=== PATIENT | female | born 1950 | race African-American/Black ===

== ENCOUNTER 2017-10-21 22:57 | Observation (INO) | payer OTHER, SELFPAY ==
[2017-10-21 22:57] VITALS: BP 142/82; PULSE 83; RESP 20; TEMP 35.5; O2SAT 98; BMI 29.4
--- NOTE | 2017-10-21 23:04 | ED.RN ---
RN CALLED FOR EKG, PULLED OLD EKGS FOR
[2017-10-21 23:12] VITALS: BP 186/85; PULSE 78; RESP 17; O2SAT 100
--- NOTE | 2017-10-21 23:27 | ED.VISSUMM ---
- ER Visit Summary Date of Service: 10/21/17 Chief Complaint: chest pain History of Present Illness: The patient is a 66 F with two days of chest pain. Patient states the pain started while she was sleeping 2 days ago. It waxes and wanes in intensity and is described as a substernal burning. Currently is a 6-7/10. Pain is worse with breathing. It is not relieved by positional changes or rest. Patient has tried Tylenol PM and trazodone without relief. She has associated dyspnea and cough. Also has sweats while having the chest pain. She denies fever, abdominal pain, nausea or vomiting, back pain. No radiation of the pain other than substernal. She denies any prior similar symptoms. Patient has history of hypertension, hypercholesterolemia, smoking, and has a pacemaker/defibrillator. She denies any history of VTE, exogenous hormone use, recent travel or surgery, or cancer. Physical Examination: Vital signs: afebrile, hemodynamically stable, no hypoxia on room air General: well nourished, well developed, in no distress Skin: warm, dry, no rash, no pallor HEENT: normocephalic and atraumatic; PERRL, EOMI, moist mucous membranes Cardiovascular: regular rate and rhythm without murmurs, no peripheral edema, 2+ pulses all distal extremities, no chest wall tenderness, no rash Respiratory: No increased work of breathing, lungs are clear to auscultation bilaterally, no rales, rhonchi or wheezing Abdominal: Abdomen is soft, nontender with normoactive bowel sounds, no guarding or rebound, no masses MSK: Moves all extremities, no deformities, normal strength Neuro: Awake and alert, oriented ?4. No facial droop, sensation and motor function intact and symmetric Test Results: Abnormal Lab Results 10/21/17 10/21/17 10/21/17 23:13 23:13 23:13 WBC 6.7 RBC 4.21 Hgb 12.1 Hct 38.4 MCV 91.2 MCH 28.7 MCHC 31.5 L RDW 14.9 H RDW Differential 49.9 H Plt Count 202 MPV 9.7 Immature Gran % (Auto) 0.100 Neut % (Auto) 50.7 Lymph % (Auto) 40.3 Bartholomew % (Auto) 6.7 Eos % (Auto) 2.1 Baso % (Auto) 0.1 Absolute Neuts (auto) 3.4 Absolute Lymphs (auto) 2.69 Total Counted Not Reportable PT 13.3 INR 1.0 APTT 27.9 D-Dimer Quant (PE/DVT) 0.28 Sodium 142 Potassium 3.6 Chloride 109 H Carbon Dioxide 23.0 Anion Gap 10 BUN 14 Creatinine 1.08 H Estim Creat Clear Calc 41.81 Est GFR (MDRD) Af Amer 65 Est GFR (MDRD) Non-Af 54 L BUN/Creatinine Ratio 13.0 Glucose 143 H Hemoglobin A1c Calcium 9.2 Troponin I < 0.015 10/21/17 10/22/17 23:13 02:40 WBC RBC Hgb Hct MCV MCH MCHC RDW RDW Differential Plt Count MPV Immature Gran % (Auto) Neut % (Auto) Lymph % (Auto) Bartholomew % (Auto) Eos % (Auto) Baso % (Auto) Absolute Neuts (auto) Absolute Lymphs (auto) Total Counted PT INR APTT D-Dimer Quant (PE/DVT) Sodium Potassium Chloride Carbon Dioxide Anion Gap BUN Creatinine Estim Creat Clear Calc Est GFR (MDRD) Af Amer Est GFR (MDRD) Non-Af BUN/Creatinine Ratio Glucose Hemoglobin A1c 5.9 Calcium Troponin I < 0.015 Clinical Impression(s) from Imaging Studies Chest X-Ray 10/21/17 23:30 IMPRESSION: Cardiomegaly with postsurgical changes. Mild atelectasis left base. No pulmonary edema, congestive heart failure or confluent pneumonia. Other nonacute findings as outlined above. Electronically Signed: Kayleigh Nino MD at 0:09 EDT , Service support , Emergency Department Course and Treatment: Chest pain workup was performed. Patient was given aspirin and nitroglycerin for the pain. She developed a severe headache after 1 dose of nitro and did not wish any further. She was given a dose of morphine. She had complete resolution of the pain. Labs showed no leukocytosis, no significant anemia, no electrolyte derangements, no renal or hepatic dysfunction. Troponin negative. Because of the pleuritic nature of the pain, a d-dimer was checked and it was within normal limits at 0.28. Patient's EKG showed a pacemaker rhythm with no ischemic changes per Sgarbossa criteria. Given patient's age, risk factors and concerning description of her chest pain, with a HEART score of 5, she would benefit from further chest pain workup. Patient was discussed with Dr. Carrillo and admitted under observation status for further chest pain rule out. Treatment Plan: [] Disposition: [] Impression: Acute chest pain, concern for ACS This note was generated with ticckle dictation software. It may contain incorrect words, spelling, and punctuation that were not noted in review of the chart prior to signing ED Disposition - Plan for ED Patient: Disposition: Acute Care Hospital [facility] Chief Complaint: Chest Pain
[2017-10-21 23:29] VITALS: O2SAT 100
[2017-10-21 23:36] VITALS: BP 178/59
[2017-10-21] MEDS: 0.9% Normal Saline 1,000 ML 250 ML IV (23:36)
[2017-10-21] MEDS: Aspirin 81 MG TAB.CHEW 324 MG PO (23:36)
[2017-10-21 23:43] LABS: Absolute Lymphocyte Count 2.69 X10^3/ul (0.83-4.51); Absolute Neutrophil Count 3.4 X10^3/uL (2.0-7.7); Basophil# 0.01 X10^3/uL; Basophil% 0.1 % (0-1); Eosinophil# 0.14 X10^3/uL; Eosinophils% 2.1 % (0-5); Hematocrit 38.4 % (37-47); Hemoglobin 12.1 g/dl (12.0-15.0); Lymphocyte # 2.69 X10^3/ul (4.0); Lymphocyte % 40.3 % (19-41); Mean Corp Hgb Conc 31.5 g/gl (32-36); Mean Corpuscular Hgb 28.7 pg (27.0-32.0); Mean Corpuscular Volume 91.2 fL (81-99); Mean Platelet Vol. 9.7 fl (6.2-12.0); Monocyte# 0.45 X10^3/uL; Monocyte% 6.7 % (0-10); Neutrophil # 3.37 X10^3/uL (2.7-7.7); Neutrophil % 50.7 % (47-70); Platelet Count 202 K/mm3 (150-450); RBC Distribution Width CV 14.9 % (11.6-14.6); RBC Distribution Width SD 49.9 fl (35.1-43.9); Red Blood Count 4.21 M/mm3 (4.2-5.4); White Blood Count 6.7 K/mm3 (4.4-11.0)
[2017-10-21 23:49] LABS: POSITIVE COUNT NO; POSITIVE DIFFERENTIAL NO; POSITIVE MORPHOLOGY NO
[2017-10-21 23:53] LABS: Anion Gap 10 (5-15); BUN 14 mg/dL (7-18); Calcium,Total 9.2 mg/dL (8.5-10.1); Chloride 109 mmol/L (98-107); Creatinine, Serum 1.08 mg/dL (0.55-1.02); EST Glomerular Filtration Rate 54 mL/min (>60); Est Glom Filt Rate - Afr Amer 65 mL/min (>60); Estimated Creatinine Clearance 41.81 ml/min; Glucose 143 mg/dL (74-106); Potassium 3.6 mmol/L (3.5-5.1); Sodium Level 142 mmol/L (136-145)
[2017-10-21] MEDS: Morphine 2 MG/ML Syringe IV (23:54)
[2017-10-22] VITALS (11 sets, daily range): BP systolic 149–200; BP diastolic 64–83; PULSE 66–86; RESP 11–18; TEMP 36.5–36.7; O2SAT 96–100; BMI 29.3
[2017-10-22 00:31] LABS: Prothrombin Time (Protime)PT. 13.3 SECONDS (11.7-14.9)
[2017-10-22 00:32] LABS: Partial Thromboplast Time 27.9 Seconds (24.1-36.2)
[2017-10-22 00:42] LABS: D-Dimer Quantitative (DVT/PE) 0.28 FEU/ug/m (0.27-0.49)
--- NOTE | 2017-10-22 01:09 | HP.PCM_ITS ---
Problem List (1) Atypical chest pain Status: Acute (2) Non-ischemic cardiomyopathy Status: Chronic Comment: S/P biventricular synchronization ICD (3) Family history of hyperlipidemia Status: Acute (4) Family history of hypertension Status: Acute (5) Dyspnea Status: Acute (6) Malaise and fatigue Status: Acute (7) Nonrheumatic mitral (valve) insufficiency Status: Chronic (8) Nonrheumatic tricuspid (valve) insufficiency Status: Chronic Comment: Mild (1+) per echo 03/24/2015 (9) History of left heart catheterization Status: Chronic Comment: 12/01/2009 @ [facility] per Dr. Joaquin: normal coronaries (10) Hypertension Status: Chronic Qualifiers: Hypertension type: essential hypertension Qualified Code(s): I10 - Essential (primary) hypertension (11) Cardiomyopathy in other diseases classified elsewhere Status: Chronic (12) Left bundle branch hemiblock Status: Chronic (13) Chronic systolic congestive heart failure Status: Chronic Comment: EF 25% per echo 03/24/2015 (14) Biventricular automatic implantable cardioverter defibrillator in situ Status: Chronic Comment: Implanted 12/19/[address] Hathaway @ [facility] (15) Paroxysmal ventricular tachycardia Status: Chronic History of Present Illness Date of Admission: 10/22/17 Chief Complaint: Chest pain since Tuesday The patient is a 66 year old F with history of nonischemic cardiomyopathy, EF 25 % with severe global hypokinesis of left ventricle and systolic dysfunction as per echo of February 2015 status post AICD, last heart cath in November 2015 with normal coronaries came to ER with chest pain that is started Tuesday evening. Chest pain is midsternal, localized with no relation to activity, exertion or changing posture. It is intermittent, lasts for 5-10 minutes, exacerbated by deep breathing but not associated with shortness of breath. She has chronic mild shortness of breath on exertion like climbing stairs and mild orthopnea but she is fine at rest due to severe chronic heart failure In ED, her workup was unremarkable with negative troponin. Glucose 143. A1c 5.9. EKG shows atrial sensed ventricular paced rhythm. She had last pacemaker interrogation in April 2017 which showed 3 episodes of NSVT in December 2016. Bi- V paced 98% of time. Recently she did not had defibrillator shock but sometimes she feels extra heartbeat. [] Past Medical History Past Medical History (Chronic Problems): Chronic Problems (Last Reviewed 03/16/17 @ 13:28 by Shira Hewitt) Non-ischemic cardiomyopathy (Chronic) S/P biventricular synchronization ICD Nonrheumatic mitral (valve) insufficiency (Chronic) Nonrheumatic tricuspid (valve) insufficiency (Chronic) Mild (1+) per echo 03/24/2015 History of left heart catheterization (Chronic) 12/01/2009 @ [facility] per Dr. Joaquin: normal coronaries Hypertension (Chronic) Cardiomyopathy in other diseases classified elsewhere (Chronic) Left bundle branch hemiblock (Chronic) Chronic systolic congestive heart failure (Chronic) EF 25% per echo 03/24/2015 Biventricular automatic implantable cardioverter defibrillator in situ (Chronic) Implanted 12/19/[address] Hathaway @ [facility] Paroxysmal ventricular tachycardia (Chronic) Medical History: Medical History (Last Reviewed 03/16/17 @ 13:28 by Shira Hewitt) Nonrheumatic mitral (valve) insufficiency (Chronic) I34.0 Nonrheumatic tricuspid (valve) insufficiency (Chronic) I36.1 Mild (1+) per echo 03/24/2015 Hypertension (Chronic) I10 Cardiomyopathy in other diseases classified elsewhere (Chronic) I43 Left bundle branch hemiblock (Chronic) I44.60 Chronic systolic congestive heart failure (Chronic) I50.22 EF 25% per echo 03/24/2015 Paroxysmal ventricular tachycardia (Chronic) I47.2 Allergies diamox eye drops Adverse Reaction (Intermediate, Uncoded 10/21/17 22:59) Itching eyes Home Medications: Ambulatory Orders Medication Instructions Recorded aspirin 81 mg tablet,delayed 81 mg PO QDAY 03/16/17 release dorzolamide 2 % eye drops 1 drp OPHTHALMIC BID ml 03/16/17 furosemide 40 mg tablet 40 mg PO QDAY 03/16/17 losartan 50 mg tablet 50 mg PO QDAY 03/16/17 potassium chloride ER 10 mEq 20 meq PO BID tab 03/16/17 tablet,extended release carvedilol 12.5 mg tablet 12.5 mg PO BID #180 tab 04/26/17 sertraline 100 mg tablet 100 mg PO QDAY #90 tab 08/11/17 trazodone 50 mg tablet 50 mg PO QHS PRN #60 tab 10/14/17 Surgical History: Surgical History (Last Reviewed 03/16/17 @ 13:28 by Shira Hewitt) History of left heart catheterization (Chronic) Z98.890 12/01/2009 @ [facility] per Dr. Joaquin: normal coronaries Biventricular automatic implantable cardioverter defibrillator in situ (Chronic ) Z95.810 Implanted 12/19/[address] Hathaway @ [facility] Smoking Status: Never smoker - *Family History Paternal Family History: Family History (Last Updated 04/29/17 @ 13:36 by Juan Edgar) Mother Hypertension Hyperlipidemia Stomach cancer Diabetes Arthritis Brother Diabetes Other Family history of hyperlipidemia Family history of hypertension History Items: No pertinent history Review of Systems Constitutional: Denies: Chills, Fever, Weight Change HEENT: Denies: Head Aches, Sinus Congestion, Sinus Drainage Cardiovascular: Reports: Chest Pain. Denies: Palpitations Respiratory: Reports: Shortness of breath upon exertion. Denies: Cough, Shortness of breath at rest, Sputum production Gastrointestinal: Denies: Abdominal Pain, Nausea, Vomiting Genitourinary: Denies: Dysuria Musculoskeletal: Denies: Joint Pain, Joint Tenderness Skin: Denies: Rash, Wounds Neurological: Denies: Numbness, Tingling, Focal weakness Psychiatric: Denies: Anxiety, Depression, Homicidal Ideations, Suicidal Ideations Hematologic/ Lymphatic: Denies: Easy Bruising, Easy Bleeding VTE Information - Inpt Only VTE Present on Admission: No VTE Mechan Device Prophylaxis: None VTE Pharm Prophylaxis ordered?: Yes Patient Problems: Active and Suspected Problems (Last Reviewed 03/16/17 @ 13:28 by Shira Hewitt) Atypical chest pain (Acute) - Physical Exam General: Alert, Oriented x3, Cooperative HEENT: Atraumatic, PERRLA, EOMI, Normocephalic Neck: Supple, No JVD, Negative Carotid Bruits Lungs: Clear to auscultation, Normal air movement, No rhonchi, No wheeze Cardiovascular: Regular rate, Regular Rhythm, Normal S1, Normal S2, No murmurs, - - Ventricular paced rhythm Abdomen: Bowel Sounds Present, Soft, Non Tender Extremities: No edema, Capillary Refill Less than 3 Seconds Skin: No rashes, No breakdown Musculoskeletal: No Tenderness to Palpation of Joints or Extremities Neurological: Cranial nerves II-XII grossly intact Psych/Mental Status: Normal Affect, Appropriate Vital Signs Temp Pulse Resp BP Pulse Ox 96 F L 78 17 178/59 H 100 10/21/17 22:57 10/21/17 23:12 10/21/17 23:12 10/21/17 23:36 10/21/17 23:29 Oxygen Flow Rate (L/min) 2 Oxygen Delivery Method Nasal Cannula Weight: 166 lb 3.657 oz Body Mass Index (BMI) 29.4 Laboratory Tests Past 24 Hrs 10/21/17 10/21/17 10/21/17 23:13 23:13 23:13 WBC 6.7 RBC 4.21 Hgb 12.1 Hct 38.4 MCV 91.2 MCH 28.7 MCHC 31.5 L RDW 14.9 H RDW Differential 49.9 H Plt Count 202 MPV 9.7 Immature Gran % (Auto) 0.100 Neut % (Auto) 50.7 Lymph % (Auto) 40.3 [place] % (Auto) 6.7 Eos % (Auto) 2.1 Baso % (Auto) 0.1 Absolute Neuts (auto) 3.4 Absolute Lymphs (auto) 2.69 Total Counted Not Reportable PT 13.3 INR 1.0 APTT 27.9 D-Dimer Quant (PE/DVT) 0.28 Sodium 142 Potassium 3.6 Chloride 109 H Carbon Dioxide 23.0 Anion Gap 10 BUN 14 Creatinine 1.08 H Estim Creat Clear Calc 41.81 Est GFR (MDRD) Af Amer 65 Est GFR (MDRD) Non-Af 54 L BUN/Creatinine Ratio 13.0 Glucose 143 H Calcium 9.2 Troponin I < 0.015 Assessment/Plan All Active Problems (Last Reviewed 03/16/17 @ 13:28 by Shira Hewitt) Atypical chest pain (Acute) Family history of hyperlipidemia (Acute) Family history of hypertension (Acute) Dyspnea (Acute) Malaise and fatigue (Acute) The patient is a 66 year old F with history of nonischemic cardiomyopathy, EF 25 % with severe global hypokinesis of left ventricle and systolic dysfunction as per echo of February 2015 status post AICD, last heart cath in November 2015 with normal coronaries came to ER with chest pain that is started Tuesday evening. Chest pain is midsternal, localized with no relation to activity, exertion or changing posture. It is intermittent, lasts for 5-10 minutes, exacerbated by deep breathing but not associated with shortness of breath. She has chronic mild shortness of breath on exertion like climbing stairs and mild orthopnea but she is fine at rest due to severe chronic heart failure In ED, her workup was unremarkable with negative troponin. Glucose 143. A1c 5.9. EKG shows atrial sensed ventricular paced rhythm. She had last pacemaker interrogation in April 2017 which showed 3 episodes of NSVT in December 2016. Bi- V paced 98% of time. Recently she did not had defibrillator shock but sometimes she feels extra heartbeat. 1. Atypical chest pain seems pleuritic in nature, rule out acute coronary syndrome: Patient is being admitted in PCU. Assess protocol with serial cardiac enzymes. Lexiscan nuclear stress test tomorrow morning. Continue aspirin, losartan, carvedilol. Fasting lipid profile tomorrow a.m. 2. Chronic systolic heart failure, class III, nonischemic cardiomyopathy status post AICD: Chest x-ray shows mild left base atelectasis but no pulmonary edema or features of acute heart failure. Chest x-ray does not show features of pneumonia. Continue home dose of Lasix 40 mg daily. She follows Dr. joaquin, next appointment in October 2017 3. Mild hyperglycemia due to prediabetes: A1c is 5.9: 1800 ADA diet. Needs diet control 4. Hypertension: Blood pressure is elevated, 194/74, 200/83, 184/72. Patient is on losartan 50 mg daily and increase to 100 mg daily. 5. Mild valvular heart disease: As per previous echo she had mild TR, mild MR: Echo shows normal left and right atrium. On medical management. DVT prophylaxis: On Lovenox 40 mg subcut daily Code Visit OBSV E&M: 06418 Initial observation care L3
[2017-10-22 02:19] LABS: Hemoglobin A1c 5.9 % (4.2-6.3)
[2017-10-22] MEDS: Carvedilol 12.5 MG Tablet PO (02:57)
[2017-10-22] MEDS: Losartan Potassium 50 MG Tablet PO ×2 (02:57→04:04)
[2017-10-22 06:04] LABS: Absolute Lymphocyte Count 2.48 X10^3/ul (0.83-4.51); Absolute Neutrophil Count 2.5 X10^3/uL (2.0-7.7); Eosinophil# 0.09 X10^3/uL; Eosinophils% 1.7 % (0-5); Hematocrit 35.2 % (37-47); Hemoglobin 10.8 g/dl (12.0-15.0); Lymphocyte # 2.48 X10^3/ul (4.0); Mean Corp Hgb Conc 30.7 g/gl (32-36); Mean Corpuscular Hgb 28.2 pg (27.0-32.0); Mean Corpuscular Volume 91.9 fL (81-99); Mean Platelet Vol. 9.9 fl (6.2-12.0); Monocyte# 0.35 X10^3/uL; Monocyte% 6.5 % (0-10); Neutrophil # 2.47 X10^3/uL (2.7-7.7); Neutrophil % 45.8 % (47-70); Platelet Count 167 K/mm3 (150-450); RBC Distribution Width CV 14.7 % (11.6-14.6); RBC Distribution Width SD 49.9 fl (35.1-43.9); Red Blood Count 3.83 M/mm3 (4.2-5.4); White Blood Count 5.4 K/mm3 (4.4-11.0)
[2017-10-22 06:05] LABS: POSITIVE COUNT NO; POSITIVE DIFFERENTIAL NO; POSITIVE MORPHOLOGY NO
[2017-10-22 06:10] LABS: International Normalized Ratio 1.1; Prothrombin Time (Protime)PT. 14.2 SECONDS (11.7-14.9)
[2017-10-22 06:11] LABS: Partial Thromboplast Time 27.2 Seconds (24.1-36.2)
[2017-10-22 06:20] LABS: Bedside Glucose 107 mg/dL (70-110)
[2017-10-22 06:42] LABS: Anion Gap 10 (5-15); BUN 14 mg/dL (7-18); BUN/Creat Ratio 16.2 RATIO (10-20); Calcium,Total 8.6 mg/dL (8.5-10.1); Chloride 112 mmol/L (98-107); Cholesterol 201 mg/dL (200); Creatinine, Serum 0.86 mg/dL (0.55-1.02); EST Glomerular Filtration Rate 69 mL/min (>60); Est Glom Filt Rate - Afr Amer 84 mL/min (>60); Estimated Creatinine Clearance 50.21 ml/min; Glucose 88 mg/dL (74-106); High Density Lipoprotein 54 mg/dL; Potassium 3.5 mmol/L (3.5-5.1); Sodium Level 146 mmol/L (136-145); Thyroid Stim Hormone (TSH) 2.35 uIU/mL (0.358-3.74); Triglycerides 78 mg/dL; Very Low Density Lipoprotein 16 mg/dL (5-40)
[2017-10-22] MEDS: Aspirin E.C. 81 MG Tablet PO (06:44)
[2017-10-22] MEDS: hydrALAZINE 50 MG Tablet PO (07:03)
[2017-10-22 07:26] LABS: Bedside Glucose 95 mg/dL (70-110)
--- NOTE | 2017-10-22 10:42 | STRESSREP ---
Stress Test Report Pharmacologic myocardial perfusion stress test. 66-year-old lady with a history of nonischemic cardiomyopathy. Medications aspirin, Lipitor, Coreg, Cozaar, Lasix. Stress protocol: Stress protocol: Resting EKG demonstrates normal sinus rhythm with rate of 73 bpm normal intervals and noted resting blood pressure is 152/90 mmHg. 0.4 mg regadenoson was infused per usual protocol followed by rapid intravenous saline flush injection continuous EKG monitoring was performed. The patient maintained sinus rhythm throughout the recording. The maximum heart rate was 106 bpm which was 69% of maximum predicted heart rate. At rest and during infusion there were no ST or T-wave changes noted to suggest abnormal flow reserve. Resting blood pressure is 152/90 final blood pressure was the same. Myocardial perfusion protocol. 11.9 mCi of technetium 99m sestamibi was injected at rest. 0.4 mg regadenoson was infused per usual protocol peak infusion 36.0 mCi of technetium 99m sestamibi was injected stress images were obtained stress and rest images were reconstructed and compared in the short axis vertical long horizontal long axis. Gated SPECT analysis: The gated ejection fraction is 47%. Perfusion SPECT analysis: Review of the stress images demonstrate normal uptake of tracer noted in all areas of the myocardium. The resting images similarly demonstrate normal uptake of tracer noted in all areas of the myocardium. No areas of reversibility are noted suggest ischemia. Conclusion: Normal pharmacologic myocardial perfusion stress test. Preserved ejection fraction.
--- NOTE | 2017-10-22 11:38 | PCM.DC ---
- Discharge Diagnoses Current Active Problems: Current Active and Chronic Problems (Last Reviewed 03/16/17 @ 13:28 by Shira Hewitt) Atypical chest pain (Acute) You will use the following diet at home:: Cardiac Your food should be the consistency of: Regular Your liquids should be the consistency of: Regular/Thin Discharge Activity: Return to Normal Activity Allergies/Adverse Reactions: Allergies diamox eye drops Adverse Reaction (Intermediate, Uncoded 10/21/17 22:59) Itching eyes Medications to take at Discharge aspirin 81 mg tablet,delayed release 81 mg PO QDAY 03/16/17 dorzolamide 2 % eye drops 1 drp OPHTHALMIC BID ml 03/16/17 furosemide 40 mg tablet 40 mg PO QDAY 03/16/17 potassium chloride ER 10 mEq tablet,extended release 20 meq PO BID tab 03/16/17 sertraline 100 mg tablet 100 mg PO QDAY #90 tab 08/11/17 trazodone 50 mg tablet 50 mg PO QHS PRN #60 tab 10/14/17 Atorvastatin Calcium [Lipitor] 40 mg PO QHS #30 tablet 10/22/17 Carvedilol [Coreg (Beta Patty)] 12.5 mg PO BID tablet 10/22/17 Losartan Potassium [Cozaar] 100 mg PO DAILY #30 tablet 10/22/17 The following prescriptions were given: Atorvastatin Calcium [Lipitor] 40 mg PO QHS #30 tablet Losartan Potassium [Cozaar] 100 mg PO DAILY #30 tablet Primary Care Physician: Terrence Chen DO [Primary Care Provider] - Please follow up with your Primary Care Physician in: 1-2 weeks Test Results: Test results from this visit will be discussed in further detail at your follow-up appointment, if applicable. Proposed Discharge Date: 10/22/17
[2017-10-22] MEDS: Furosemide 40 MG Tablet PO (11:48)
[2017-10-22] MEDS: Sertraline 100 MG Tablet PO (11:49)
[2017-10-22] MEDS: Dorzolamide 2% 10ml Bottle 1 DRP OPHTHALMIC (11:49)
[2017-10-22 12:01] LABS: Bedside Glucose 77 mg/dL (70-110)
--- NOTE | 2017-10-22 14:27 | PCM.DC.SUM ---
<Candelario Montano - Last Filed: 10/22/17 14:27> Discharge Date and Diagnosis Date of Admission: 10/22/17 Date of Discharge: 10/22/17 - Primary Discharge Diagnosis Chest pain - musculoskeltal HTN Nonischemic CM s/p pacemaker defibrillator HTN Chronic systolic CHF - Secondary Discharge Diagnosis Chronic Problems (Last Reviewed 03/16/17 @ 13:28 by Shira Hewitt) Non-ischemic cardiomyopathy (Chronic) S/P biventricular synchronization ICD Nonrheumatic mitral (valve) insufficiency (Chronic) Nonrheumatic tricuspid (valve) insufficiency (Chronic) Mild (1+) per echo 03/24/2015 History of left heart catheterization (Chronic) 12/01/2009 @ [facility] per Dr. Hanks: normal coronaries Hypertension (Chronic) Cardiomyopathy in other diseases classified elsewhere (Chronic) Left bundle branch hemiblock (Chronic) Chronic systolic congestive heart failure (Chronic) EF 25% per echo 03/24/2015 Biventricular automatic implantable cardioverter defibrillator in situ (Chronic) Implanted 12/19/[address] Hathaway @ [facility] Paroxysmal ventricular tachycardia (Chronic) Hospital Course and Treatment Imaging Results: 10/22/17 05:55 Nuclear Stress Test - Chemical [NM] AM (NON MEDS) Conclusion: Normal pharmacologic myocardial perfusion stress test. Preserved ejection fraction. RAD/Chest 1 View (Portable) IMPRESSION: Cardiomegaly with postsurgical changes. Mild atelectasis left base. No pulmonary edema, congestive heart failure or confluent pneumonia. Other nonacute findings as outlined above. Operations: None Procedures: Stress test Summary of Care Provided: Physical exam on day of discharge: General: Resting comfortably NAD Psych: A/Ox3 normal affect HEENT: PEARRLA AT NC Neck: Supple NT CV: RRR no m/t/r/g/h Resp: CTA Abd: [id number] Soft NT no guarding or rigidity Ext: DP2+= no edema Skin: W/D normal turgor Lymph/Heme: No active bleeding or adenopathy Neuro: CN2-12 intact Hospital course: The patient is a 66 year old F with a hx as above who presented to the ER with c/o Chest pain for 3 days, described as left midsternal, intermittent lasting for 5019 minutes worse with deep breathing and with occasional palpitations, but not associated with increased SOB. She has mild chronic SOB and exertional dyspnea, and orthopnea with hx of nonischemic CM and low EF 25%, chronic systolic HF. In the ER Troponin was negative, EKG was paced rhythm with no acute change, and CXR showed cardiomegaly, CHF, and atelectasis. TSH normal. A1C 5.9. O2 98% RA. Somewhat hypertensive. She was admitted to PCU for CP workup on telemetry. No events on tele. Trop neg x3. Stress test the following morning was normal. Losartan was increased for HTN. Lipitor was started for HLD. She was discharged home in stable condition and will need to follow up with her PCP in 1-2 weeks. This patient was seen by Candelario Montano PA-C under the supervision of Doctor Omar. [] Discharge Diet: Low fat/ Low Cholesterol, 2000 mg Sodium Diet Discharge Activity: Return to Normal Activity Home Medications: Medications to take at Discharge aspirin 81 mg tablet,delayed release 81 mg PO QDAY 03/16/17 dorzolamide 2 % eye drops 1 drp OPHTHALMIC BID ml 03/16/17 furosemide 40 mg tablet 40 mg PO QDAY 03/16/17 potassium chloride ER 10 mEq tablet,extended release 20 meq PO BID tab 03/16/17 sertraline 100 mg tablet 100 mg PO QDAY #90 tab 08/11/17 trazodone 50 mg tablet 50 mg PO QHS PRN #60 tab 10/14/17 Atorvastatin Calcium [Lipitor] 40 mg PO QHS #30 tab 10/22/17 Carvedilol [Coreg (Beta Patty)] 12.5 mg PO BID tablet 10/22/17 Losartan Potassium [Cozaar] 100 mg PO DAILY #30 tab 10/22/17 Following Prescrptions Were Given to Patient: Atorvastatin Calcium [Lipitor] 40 mg PO QHS #30 tab Losartan Potassium [Cozaar] 100 mg PO DAILY #30 tab Primary Care Physician: Terrence Chen DO [Primary Care Provider] - Please follow up with your Primary Care Physician in: 1-2 weeks Disposition: Home Minutes spent on discharge:: 35 Patient Condition:: Stable Medical Necessity - Tobacco Use Smoking Status: Never smoker Tobacco Use: Cigarettes, Vapor Meaningful Use Info Meaningful Use Diagnoses (Choose all that apply): None applicable <Jopperi,Calixto - Last Filed: 10/22/17 15:09> Discharge Date and Diagnosis - Secondary Discharge Diagnosis Chronic Problems (Last Reviewed 03/16/17 @ 13:28 by Shira Hewitt) Non-ischemic cardiomyopathy (Chronic) S/P biventricular synchronization ICD Nonrheumatic mitral (valve) insufficiency (Chronic) Nonrheumatic tricuspid (valve) insufficiency (Chronic) Mild (1+) per echo 03/24/2015 History of left heart catheterization (Chronic) 12/01/2009 @ [facility] per Dr. Hanks: normal coronaries Hypertension (Chronic) Cardiomyopathy in other diseases classified elsewhere (Chronic) Left bundle branch hemiblock (Chronic) Chronic systolic congestive heart failure (Chronic) EF 25% per echo 03/24/2015 Biventricular automatic implantable cardioverter defibrillator in situ (Chronic) Implanted 12/19/[address] Hathaway @ [facility] Paroxysmal ventricular tachycardia (Chronic) Hospital Course and Treatment Operations: None Procedures: Stress test Summary of Care Provided: Patient seen and examined independently. Data reviewed. I agree with the above note by the physician expanded function dental assistant. The patient is a 66 year old F presents with chest pain. Patient underwent stress test that was unremarkable. Patient discharged home in stable condition. [] Discharge Diet: Low fat/ Low Cholesterol, 2000 mg Sodium Diet Discharge Activity: Return to Normal Activity Disposition: Home Patient Condition:: Stable Meaningful Use Info Meaningful Use Diagnoses (Choose all that apply): None applicable Code Visit OBSV E&M: 49715 Observation care discharge
== END 2017-10-22 11:38 | disposition home or self-care (01) ==
LOC: ED 23:25 → PCU 10-22 01:17
PROVIDERS: Admitting Provider Internal Medicine; Emergency Provider Emergency Medicine; Family Provider Family Medicine; PCP Family Medicine
DX: R07.89 Other chest pain (principal); E78.00 Pure hypercholesterolemia, unspecified; R51 Headache; I42.9 Cardiomyopathy, unspecified; I47.2 Ventricular tachycardia; I11.0 Hypertensive heart disease with heart failure; I50.22 Chronic systolic (congestive) heart failure; Z95.810 Presence of automatic (implantable) cardiac defibrillator; Z79.899 Other long term (current) drug therapy; Z79.82 Long term (current) use of aspirin; R73.03 Prediabetes; R94.31 Abnormal electrocardiogram [ECG] [EKG]
CPT/HCPCS: 36415; 71045; 78452; 80048; 80061; 82962; 83036; 84443; 84484; 85025; 85379; 85610; 85730; 93005; 93017; 96374; 99218; 99283; A9500; J7030; A4216; G0378; J2785

== ENCOUNTER → 2017-10-25 10:17 | Outpatient (CLI) | payer OTHER, SELFPAY ==
[2017-10-25 10:52] LABS: D-Dimer Quantitative (DVT/PE) 0.45 FEU/ug/m (0.27-0.49)
== END ==
PROVIDERS: Family Provider Family Medicine; PCP Family Medicine; Visit Provider Internal Medicine Cardiovascular Disease
DX: R07.9 Chest pain, unspecified (principal); R06.00 Dyspnea, unspecified
CPT/HCPCS: 36415; 71275; 85379; Q9967; A4216

== ENCOUNTER 2017-11-07 13:33 | Observation (INO) | payer OTHER, SELFPAY ==
[2017-11-04 09:11] VITALS: BMI 29.9
[2017-11-07] VITALS (16 sets, daily range): BP systolic 104–177; BP diastolic 49–114; PULSE 61–73; RESP 12–20; TEMP 36.9–37; O2SAT 98–100; BMI 29.9
--- NOTE | 2017-11-07 13:43 | CL.I_ITS ---
Patient Name: RULA HUTCHISON Study Date: 11/07/2017 Performing: Priyank Pritchett MD Ht: 62.99 inches 160 cm : 1950 Wt: 169.76 lbs 77 kg Age: 66 Gender: female BSA: 1.8 PROCEDURE(S) PERFORMED NF95-XVI W OR WO PTCA, SINGLE CORONARY ARTERY CLINICAL PROFILE AND CO-MORBIDITIES Indications: Suspected CAD Heart Failure: NYHA Class: 1, Newly Diagnosed: No, Heart Failure Type: Systolic Stress/Imaging Stress Test w/SPECT MPI: No Stress/Image Study Performed: No Angina Classification Anginal Classification w/in 2 Weeks: CCS II CAD Presentations: Unstable angina. Unstable angina. Comorbidities/Risk Factors: Hypertension Dyslipidemia Prior CHF CONCLUSIONS Successful PTCA/JORGE of the to proximal RCA using a 3.0 x 16 Promus Synergy, post dilated throughout w ith a 3.5 x 8 NC balloon at 18 bharti; 95%-->0%, no dissection. Unable to close with Mynx device due access proximity to SFA and Profunda bifurcation. 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 Hanks Manual sheath removal of RFA and R radial sheaths. DESCRIPTION OF PROCEDURE The patient arrived to the procedure lab. The risks and benefits of the procedure as well as a full d escription of our services here and current unavailability of surgical backup were fully explained to the patient and/or their significant other prior to the catheterization. The Timeout was completed, verifying the correct patient and procedure. The patient's procedural site was prepped and draped in the usual fashion. Local anesthetic was given subcutaneously to right radial region with Lidocaine 2% . Local anesthetic was given subcutaneously to right groin region with Lidocaine 2% Using a modified Seldinger technique,arterial access was obtained via the right radial artery, a 6Fr sheath was insert ed., arterial access was obtained via the right femoral artery, a 6Fr sheath was inserted. Right [place] nary Artery selective angiography was then performed in multiple views using a 5 Fr. 4.0 [place] cathet er. Left Coronary Artery selective angiography was performed in multiple views using a 5 Fr. 4.0 Tige r catheter. Left Ventriculography was performed in FUENTES projection using a 5 Fr. Pigtail catheter. LV to AO pullback pressures were then recorded.The images were reviewed and options discussed. A decisio n was then made to proceed with an Intervention, IVUS or other adjunct procedure. HS 2 SH Guide catheter was inserted and engaged into the RCA. BMW Guide wire was advanced to the RCA. 2.00X12 EMERGE Balloon catheter was inserted. Balloon catheter was advanced across lesion in the rig ht coronary, proximal. PTCA balloon inflated at 6 atms for 8 secs. 3.00X16 SYNERGY Drug Eluting stent was inserted. Drug Eluting stent was advanced across the lesion in the right coronary, proximal. 3.5 0X8 NC EMERGE Balloon catheter was inserted post stent. Angiogram performed post stent deployment. 3. 50X8 NC EMERGE Balloon catheter was reinserted Angiogram performed post balloon dilatation. The art erial sheath was pulled and a TR Band was applied for hemostasis. The arterial sheath was sutured in place and capped INTERVENTION INFORMATION LESION SITE: RCA (Proximal) Lesion Complexity: Non-High/Non-C, lesion at bifurcation: No, thrombus present: No, lesion length: 16 mm, culprit lesion: Yes Pre Stenosis: 95 % Pre intervention RUTH flow: 2 PROCEDURE: Drug Eluting Stent with pre and post dilatation Post Stenosis: 0 % Post intervention RUTH flow: 3 Lesion Devices: Blood .014 BMW [place] Straight 190cm Medtronic 6 Fr HSII SH 100cm Guide Catheter Shar Sci EMERGE MR 2.00x12 BALLOON Shar Sci Synergy MR JORGE 3.00x16 Shar Sci NC EMERGE MR 3.50x08 BALLOON COMPLICATIONS No Complications PROCEDURE MEDICATIONS Fentanyl 50 mcg IV Versed 1 mg IV Versed 1 mg IV Oxygen: 2 L/min via nasal cannula Heparin diluted in 23cc Heparinized saline. Patient given 10cc IA of this solution. 11/07/2017 12:43: 14 Heparin 6000 unit(s) IV 11/07/2017 13:13:05 Nitro 200 mcg IC 11/07/2017 13:14:59 Nitro 200 mcg IC 11/07/2017 13:14:59 Nitro 200 mcg IC 11/07/2017 13:18:45 Verapamil 2.5mg, Ntg 100mcgs, 2000 units of Heparin diluted in 23cc Heparinized saline. Patient give n 10cc IA of this solution. 11/07/2017 12:43:14 SUMMARY OF HEMODYNAMIC DATA Time AIR REST ECG 10:32:37 ECG 12:11:00 AO 132/64 (89) SA 12:45:08 LV 160/-2, 13 12:52:11 LV 162/-2, 14 12:52:17 LVp 149/56, 63 12:53:53 AOp 161/-42 (28) 12:53:58 Signed By Priyank Pritchett MD On 11/07/2017 13:43:18 Priyank Pritchett MD
[2017-11-07 13:51] LABS: ACT Activated Clotting Time 290 sec (74-137)
--- NOTE | 2017-11-07 14:24 | EKG12_ITS ---
Test Reason : AM Blood Pressure : / mmHG Vent. Rate : 069 BPM Atrial Rate : 069 BPM P-R Int : 190 ms QRS Dur : 126 ms QT Int : 474 ms P-R-T Axes : 062 059 -24 degrees QTc Int : 507 ms Atrial-sensed ventricular-paced rhythm Biventricular pacemaker detected Abnormal ECG When compared with ECG of 07-NOV-2017 14:03, MANUAL COMPARISON REQUIRED, DATA IS UNCONFIRMED Confirmed by GALEN FELICIANO, VARSHA ([id number]), assistant production editor CHRIS HOPPER ([id number]) on 11/09/2017 2:06:20 PM Referred By: Varsha Hanks Confirmed By:VARSHA HANKS MD
[2017-11-07 15:21] LABS: ACT Activated Clotting Time 202 sec (74-137)
--- NOTE | 2017-11-07 15:22 | CRPHASE1 ---
Patient Data/Charges Phase II Referral:: [facility] Start Phase II:: FOLLOWING OFFICE VISIT WITH BIOCHEMICAL ENGINEER Risk Factors/Lifestyle Smoking Status: Never smoker Hx Hypertension: Yes Hx Diabetes Mellitus Type 1: No Hx Diabetes Mellitus Type 2: No Hx Metabolic Disorders: No Hx Dyslipidemia: Yes Hx Obesity: No Height: 5 ft 3 in - BMI 29.9 Post-Menopausal: Yes Stress: Home/Family ETOH: No Substance Abuse: No Risk Factor for Sedentary Lifestyle: Moderate Risk Family History: Family History (Last Updated 04/29/17 @ 13:36 by Juan Edgar) Mother Hypertension Hyperlipidemia Stomach cancer Diabetes Arthritis Brother Diabetes Other Family history of hyperlipidemia Family history of hypertension Phase I Education Given On:: [place], Nutrition, Antiplatelet medication, CHF Issues Affecting Care:: None Knowledge of Condition:: Yes Learning Preferences: Verbal, Written Hospital Course Presenting Symptoms:: UNSTABLE ANGINA Medical/Surgical History [place]:: No Angina:: Yes - UNSTABLE Cardiomyopathy:: Yes - CHRONIC Diabetes:: No Hypertension:: Yes Dyslipidemia:: Yes Other Medical/Surgical Issues:: HX PAROXYSMAL VENTRICULAR TACHYCARDIA Discharge/Home/Social Eval Discharge Disposition: Home
--- NOTE | 2017-11-07 15:25 | CRPHASE1_ITS ---
Patient Data/Charges Phase II Referral:: [facility] Start Phase II:: FOLLOWING OFFICE VISIT WITH RF MICROWAVE ENGINEER Risk Factors/Lifestyle Smoking Status: Never smoker Hx Hypertension: Yes Hx Diabetes Mellitus Type 1: No Hx Diabetes Mellitus Type 2: No Hx Metabolic Disorders: No Hx Dyslipidemia: Yes Hx Obesity: No Height: 5 ft 3 in - BMI 29.9 Post-Menopausal: Yes Stress: Home/Family ETOH: No Substance Abuse: No Risk Factor for Sedentary Lifestyle: Moderate Risk Family History: Family History (Last Updated 04/29/17 @ 13:36 by Juan Edgar) Mother Hypertension Hyperlipidemia Stomach cancer Diabetes Arthritis Brother Diabetes Other Family history of hyperlipidemia Family history of hypertension Phase I Education Given On:: [place], Nutrition, Antiplatelet medication, CHF Issues Affecting Care:: None Knowledge of Condition:: Yes Learning Preferences: Verbal, Written Hospital Course Presenting Symptoms:: UNSTABLE ANGINA Medical/Surgical History [place]:: No Angina:: Yes - UNSTABLE Cardiomyopathy:: Yes - CHRONIC Diabetes:: No Hypertension:: Yes Dyslipidemia:: Yes Other Medical/Surgical Issues:: HX PAROXYSMAL VENTRICULAR TACHYCARDIA Discharge/Home/Social Eval Discharge Disposition: Home
--- NOTE | 2017-11-07 15:27 | CRPH1.INST_ITS ---
General Education CAD and cardiac anatomy and function:: Patient communicates acknowledgment Explanation of diagnoses and procedures:: Patient communicates acknowledgment Sign/Symptoms of LA:: Patient communicates acknowledgment Antiplatelet therapy: Patient communicates acknowledgment Proper use of NTG-SL: Patient communicates acknowledgment Emergency procedures and activation of EMS: Patient communicates acknowledgment Compliance of all prescribed medications: Patient communicates acknowledgment Smoking Patient Nicotine/Smoking Risk Factors Are:: Never smoked Dyslipidemia Patient Dyslipidemia Risk Factors Are:: Total Cholesterol, Triglycerides, HDL, LDL Recommendations Include:: Lipid profile provided, Reviewed NCEP/ATP guidelines, Therapeutic Lifestyle Change dietary guidelines Dyslipidemia Response Code:: Patient communicates acknowledgment Overweight/Obesity Patient Overweight/Obesity Risk Factors Are:: Overweight = 26-29 Recommendations Include:: Weight loss of 5-10%, Reduced calorie diet, Exercise 5 -7 times/week Overweight/Obesity:: Patient communicates acknowledgment Hypertension Recommendations Include:: Maintain BP <130/85, DASH dietary guidelines, Decrease /maintain normal body weight, Moderation of ETOH Hypertension:: Patient communicates acknowledgment Diabetes Patient Diabetes Risk Factors Are:: No documented hx of diabetes Metabolic Syndrome Recommendations Include:: Does not meet criteria Sedentary Patient Sedentary Risk Factors Are:: Lack of regular exercise Recommendations Include:: Aerobic exercise 5-7 times/week for 20-30 minutes continuously, Benefits of regular exercise, Discussed home walking program, Monitored Outpatient Cardiac Rehab Sedentary Response Code:: Patient communicates acknowledgment Stress Recommendations Include:: Identification of stressors, and assessment of coping skills, Stress management techniques Stress Response Code:: Patient communicates acknowledgment
[2017-11-07] MEDS: Acetaminophen 325 MG Tablet 650 MG PO ×2 (15:50→22:02)
[2017-11-07] MEDS: 0.9% Normal Saline 1,000 ML 150 ML IV (16:01)
[2017-11-07 16:35] LABS: ACT Activated Clotting Time 175 sec (74-137)
[2017-11-07] MEDS: Nitroglycerin Oint 1 INCH PACKET TRANSDERM. (17:13)
[2017-11-07 17:50] LABS: ACT Activated Clotting Time 153 sec (74-137)
[2017-11-07] MEDS: Labetalol 100 MG/20 ML Vial IV (19:25)
[2017-11-07] MEDS: Morphine 2 MG/ML Syringe IV (20:12)
[2017-11-07] MEDS: 0.9% NaCl Peripheral Flush Adult/Peds IV (20:30)
[2017-11-07] MEDS: LORazepam 1 MG Tablet PO (22:02)
[2017-11-07] MEDS: traZODone 50 MG Tablet PO (22:02)
[2017-11-07] MEDS: Dorzolamide 2% 10ml Bottle 1 DRP OPHTHALMIC (22:04)
[2017-11-07] MEDS: Isosorbide DN 20 MG Tablet PO (22:06)
[2017-11-07] MEDS: Atorvastatin Calcium 40 MG Tablet PO (22:06)
[2017-11-07] MEDS: Carvedilol 12.5 MG Tablet PO (22:06)
[2017-11-08] VITALS (12 sets, daily range): BP systolic 101–144; BP diastolic 34–59; PULSE 66–80; RESP 12–18; TEMP 36.9; O2SAT 97–99
[2017-11-08 04:28] LABS: Hematocrit 35.2 % (37-47); Hemoglobin 10.9 g/dl (12.0-15.0); Mean Corpuscular Hgb 28.6 pg (27.0-32.0); Mean Corpuscular Volume 92.4 fL (81-99); Mean Platelet Vol. 9.5 fl (6.2-12.0); Platelet Count 143 K/mm3 (150-450); RBC Distribution Width CV 14.7 % (11.6-14.6); RBC Distribution Width SD 49.7 fl (35.1-43.9); Red Blood Count 3.81 M/mm3 (4.2-5.4); White Blood Count 3.7 K/mm3 (4.4-11.0)
[2017-11-08 04:33] LABS: Scan Indicated on CBC? Y/N NO
[2017-11-08 04:54] LABS: Anion Gap 8 (5-15); BUN 13 mg/dL (7-18); BUN/Creat Ratio 17.9 RATIO (10-20); Calcium,Total 8.6 mg/dL (8.5-10.1); Chloride 113 mmol/L (98-107); Cholesterol 137 mg/dL (200); Creatinine, Serum 0.73 mg/dL (0.55-1.02); EST Glomerular Filtration Rate 85 mL/min (>60); Est Glom Filt Rate - Afr Amer 103 mL/min (>60); Estimated Creatinine Clearance 45.16 ml/min; Glucose 94 mg/dL (74-106); High Density Lipoprotein 50 mg/dL; Sodium Level 148 mmol/L (136-145); Triglycerides 96 mg/dL; Very Low Density Lipoprotein 19 mg/dL (5-40)
--- NOTE | 2017-11-08 07:36 | PN.CARD_ITS ---
Subjectve: Patient seen and evaluated. Appears to be doing well. Had uneventful night with no chest pain or groin discomfort. Objective: Vital Signs Temp Pulse Resp BP Pulse Ox 98.5 F 70 12 123/55 H 99 11/08/17 04:00 11/08/17 06:00 11/08/17 06:00 11/08/17 06:00 11/08/17 06:00 Oxygen Delivery Method Room Air Weight: 168 lb 15.996 oz Body Mass Index (BMI) 29.9 Intake and Output for Last 24 Hours 11/06/17 11/07/17 11/08/17 23:59 23:59 23:59 Intake Total 600 / 600 1027 / 1027 Output Total 400 / 400 Balance 200 / 200 1027 / 1027 General: Awake, Alert, Oriented x 3 HEENT: PERRL, EOMI, Sclera Non Icteric Neck: Supple, Good ROM, No Lymph Node Enlargement Lungs: Clear to auscultation Cardiovascular: Regular Rhythm, Normal S1, Normal S2, No Murmurs, No Rubs, No Gallops Vascular: No Carotid Bruits, Normal Femoral Pulses, Normal Radial Pulses, Normal Dorsalis Pedal Pulse, Normal Posterior Tibial Pulses Abdomen: Bowel Sounds Present, Soft, Non Tender, No HSM, No Organomegaly Extremities: No Cyanosis, No Clubbing, No edema Neurological: No Focal Motor or Sensory Deficit 11/08/17 04:30: Sodium 148 H, Potassium 4.0, Chloride 113 H, Carbon Dioxide 27.0 , Anion Gap 8, BUN 13, Creatinine 0.73, Est GFR (MDRD) Af Amer 103, Est GFR ( MDRD) Non-Af 85, BUN/Creatinine Ratio 17.9, Glucose 94, Calcium 8.6, Triglycerides 96, Cholesterol 137, LDL Cholesterol 68, VLDL Cholesterol 19, HDL Cholesterol 50 11/08/17 04:30: WBC 3.7 L, RBC 3.81 L, Hgb 10.9 L, Hct 35.2 L, MCV 92.4, MCH 28.6, MCHC 31.0 L, RDW 14.7 H, RDW Differential 49.7 H, Plt Count 143 L, MPV 9.5 Rhythm: EKG: ECHO: Stress Test: Cardiac Cath: PCI: CT Surgery: Holter monitor: EPS: PPM: CXR: Chest CT Scan: Medical Necessity - Tobacco Use Smoking Status: Never smoker Assessment/Plan 1. Coronary artery disease status post angioplasty and stenting of the right coronary artery. * Patient presented with unstable angina and underwent cardiac catheterization yesterday demonstrating high-grade 95% stenosis of the proximal right coronary artery and successfully underwent a drug-eluting stent. * This morning patient appears to be doing well with groin stable and no evidence of hematoma, no EKG changes noted * Will discharge this morning for outpatient follow-up on same medications and cardiac rehabilitation * 2. Cardiomyopathy * Patient has previously documented nonischemic cardiomyopathy * Will continue with beta-reynold * Continue losartan * Continue Lasix * 3. Status post ICD implantation * Patient is status post ICD implantation and will continue following up in our office. * * Patient stable to be discharged this morning. Discussed with patient and nursing.
--- NOTE | 2017-11-08 07:41 | DCINST_ITS ---
Discharge Diet: Low fat/ Low Cholesterol Lifting Restrictions: 10 pounds and also avoid any pushing or pulling for 3 days after your test. Additional Activity Instructions:: You must have someone drive you home. Do not drive until instructed by your doctor. You must have someone stay with you all night after your test. Rest in bed or on the couch until the next morning. Limit the number of times you go up and down stairs the day of your test. Apply pressure to the puncture site if you sneeze or cough. Change Dressing in (Days):: 3 Remove Dressing in (days):: 3 Cleanse incision/area with: Keep Dressing Clean & Dry Allergies/Adverse Reactions: Allergies diamox eye drops Adverse Reaction (Intermediate, Uncoded 11/04/17 09:12) Itching eyes Medications to take at Discharge aspirin 81 mg tablet,delayed release 81 mg PO QDAY 03/16/17 dorzolamide 2 % eye drops 1 drp OPHTHALMIC BID ml 03/16/17 sertraline 100 mg tablet 100 mg PO QDAY #90 tab 08/11/17 trazodone 50 mg tablet 50 mg PO QHS PRN #60 tab 10/14/17 Atorvastatin Calcium [Lipitor] 40 mg PO QHS #30 tab 10/22/17 Carvedilol [Coreg (Beta Patty)] 12.5 mg PO BID tablet 10/22/17 isosorbide dinitrate 20 mg tablet 20 mg PO BID #60 tab 10/25/17 furosemide 40 mg tablet 40 mg PO QDAY #90 tab 10/26/17 clopidogrel 75 mg tablet 75 mg PO DAILY #30 tab 11/03/17 Losartan Potassium [Cozaar] 50 mg PO DAILY 11/04/17 Isosorbide DN [Isordil] 20 mg PO BID tablet 11/08/17 Primary Care Physician: Terrence Chen DO [Primary Care Provider] - Test Results: Test results from this visit will be discussed in further detail at your follow- up appointment, if applicable. When: Follow up Dr joaquin in a week Cardiac Rehabilitation Info Cardiac Rehabilitation Program Information: Cardiac Rehabilitation is important for patients like you who are recovering from a heart problem. Cardiac rehabilitation programs are recognized as integral to the continued care of the patient with coronary heart disease. The cardiac rehabilitation program is designed to optimize a patient's physical, psychological, and social functioning. Health care aide work in cardiac rehabilitation programs and assist you with getting the treatments you need to get stronger and healthier - like exercise, healthy eating habits, and medications. Cardiac rehabilitation has been show to help people with heart problems live longer and have better life enjoyment than people who do not go to cardiac rehabilitation. Please contact the Cardiac Rehabilitation Program at [facility] at in two weeks if you have not heard from them.
[2017-11-08] MEDS: Sertraline 100 MG Tablet PO (08:20)
[2017-11-08] MEDS: Carvedilol 12.5 MG Tablet PO (08:20)
[2017-11-08] MEDS: Losartan Potassium 50 MG Tablet PO (08:20)
[2017-11-08] MEDS: Clopidogrel Bisulfate 75 MG Tablet PO (08:20)
[2017-11-08] MEDS: Isosorbide DN 20 MG Tablet PO (08:20)
[2017-11-08] MEDS: Aspirin E.C. 81 MG Tablet PO (08:22)
[2017-11-08] MEDS: Dorzolamide 2% 10ml Bottle 1 DRP OPHTHALMIC (08:23)
--- NOTE | 2017-11-08 10:00 | EKG12_ITS ---
Test Reason : POST HEART CATH Blood Pressure : / mmHG Vent. Rate : 061 BPM Atrial Rate : 061 BPM P-R Int : 178 ms QRS Dur : 132 ms QT Int : 468 ms P-R-T Axes : 062 092 -19 degrees QTc Int : 471 ms Atrial-sensed ventricular-paced rhythm Biventricular pacemaker detected Abnormal ECG When compared with ECG of 22-OCT-2017 01:45, Vent. rate has decreased BY 5 BPM Confirmed by GALEN FELICIANO, VARSHA ([id number]), research editor CHRIS HOPPER ([id number]) on 11/09/2017 2:07:10 PM Referred By: Varsha Hanks Confirmed By:VARSHA HANKS MD
--- NOTE | 2017-11-23 16:29 | PCM.HP.STD ---
Problem List (1) Atherosclerosis of coronary artery of circle heart with angina pectoris Status: Acute Comment: [id number] RCA w/ 3.0 x 16 mm Promus Synergy 11/07/17 (2) Non-ischemic cardiomyopathy Status: Chronic Comment: S/P biventricular synchronization ICD History of Present Illness Date of Admission: 11/07/17 The patient is a 67 year old F [that presents here today for a heart cath. She was admitted on 10/22/2017 for chest pain and SOB. Her troponins were negative x3. She did have a stress test which was negative for ischemia. Her medications were adjusted. She called our office after she was discharged with continued chest pain and SOB. She has a CT of her chest which was negative for PE. She was started in Isosorbide and set up for a heart cath. She does have a history of non ischemic cardiomyopathy with BiV- ICD, and hypertension. She sts that since she started the Isosorbide she has not had any further chest pain.] Past Medical History Past Medical History (Chronic Problems): Chronic Problems (Last Reviewed 11/16/17 @ 15:56 by Terrence Chen DO) Non-ischemic cardiomyopathy (Chronic) S/P biventricular synchronization ICD Dyspnea (Chronic) Malaise and fatigue (Chronic) Nonrheumatic mitral (valve) insufficiency (Chronic) Nonrheumatic tricuspid (valve) insufficiency (Chronic) Mild (1+) per echo 03/24/2015 Hypertension (Chronic) Left bundle branch hemiblock (Chronic) Chronic systolic congestive heart failure (Chronic) EF 25% per echo 03/24/2015 Biventricular automatic implantable cardioverter defibrillator in situ (Chronic) Implanted 12/19/[address] Hathaway @ [facility] Paroxysmal ventricular tachycardia (Chronic) Medical History: Medical History (Last Reviewed 11/16/17 @ 15:56 by Terrence Chen DO) Atherosclerosis of coronary artery of circle heart with angina pectoris (Acute) I25.119 [id number] RCA w/ 3.0 x 16 mm Promus Synergy 11/07/17 Non-ischemic cardiomyopathy (Chronic) I42.8 S/P biventricular synchronization ICD Nonrheumatic mitral (valve) insufficiency (Chronic) I34.0 Nonrheumatic tricuspid (valve) insufficiency (Chronic) I36.1 Mild (1+) per echo 03/24/2015 Hypertension (Chronic) I10 Left bundle branch hemiblock (Chronic) I44.60 Chronic systolic congestive heart failure (Chronic) I50.22 EF 25% per echo 03/24/2015 Paroxysmal ventricular tachycardia (Chronic) I47.2 Allergies diamox eye drops Adverse Reaction (Intermediate, Uncoded 11/04/17 09:12) Itching eyes Home Medications: Ambulatory Orders Medication Instructions Recorded aspirin 81 mg tablet,delayed 81 mg PO QDAY 03/16/17 release dorzolamide 2 % eye drops 1 drp OPHTHALMIC BID ml 03/16/17 sertraline 100 mg tablet 100 mg PO QDAY #90 tab 08/11/17 Carvedilol [Coreg (Beta Patty)] 12.5 mg PO BID tab 10/22/17 furosemide 40 mg tablet 40 mg PO QDAY #90 tab 10/26/17 atorvastatin 40 mg tablet 40 mg PO QHS #90 tab 11/16/17 clopidogrel 75 mg tablet 75 mg PO DAILY #90 tab 11/16/17 losartan 100 mg tablet 100 mg PO DAILY tab 11/16/17 tramadol 50 mg tablet 50 mg PO Q6H PRN #60 tab 11/16/17 trazodone 50 mg tablet 50 mg PO QHS PRN #90 tab 11/17/17 Surgical History: Surgical History (Last Reviewed 11/16/17 @ 15:56 by Terrence Chen DO) H/O right coronary artery stent placement (Acute) Onset Date: 11/07/17 Z95.5 [id number] RCA w/ 3.0 x 16 mm Promus Synergy 11/07/17 Biventricular automatic implantable cardioverter defibrillator in situ (Chronic) Z95.810 Implanted 12/19/[address] Hathaway @ [facility] History of left heart catheterization (Resolved) Z98.890 12/01/[address] [facility] per Dr. Hanks: normal coronaries Smoking Status: Never smoker - *Family History Paternal Family History: Family History (Last Reviewed 11/16/17 @ 15:56 by Terrence Chen DO) Mother Hypertension Hyperlipidemia Stomach cancer Diabetes Arthritis Brother Diabetes Other Family history of hyperlipidemia Family history of hypertension History Items: No pertinent history Review of Systems Constitutional: Denies: Chills, Fever, Weight Change HEENT: Denies: Head Aches Cardiovascular: Reports: Chest Pain. Denies: Palpitations Respiratory: Reports: Shortness of breath at rest. Denies: Cough, Sputum production Gastrointestinal: Denies: Abdominal Pain, Nausea, Vomiting Genitourinary: Denies: Dysuria Musculoskeletal: Denies: Joint Pain, Joint Tenderness Hematologic/ Lymphatic: Denies: Easy Bruising, Easy Bleeding VTE Information - Inpt Only VTE Present on Admission: No - Physical Exam General: Alert, Oriented x3, Cooperative HEENT: Atraumatic, PERRLA, EOMI, Normocephalic Neck: Supple, No JVD, Negative Carotid Bruits Lungs: Clear to auscultation, Normal air movement Cardiovascular: Regular rate, Murmur - 1/6 JONATHAN LLSB Abdomen: Bowel Sounds Present, Soft, Non Tender Neurological: Cranial nerves II-XII grossly intact Vital Signs Temp Pulse Resp BP Pulse Ox 98.4 F 80 16 144/59 H 99 11/08/17 07:00 11/08/17 08:00 11/08/17 08:00 11/08/17 08:00 11/08/17 08:00 Oxygen Delivery Method Room Air Weight: 168 lb 15.996 oz Body Mass Index (BMI) 29.9 Assessment/Plan All Active Problems (Last Reviewed 11/16/17 @ 15:56 by Terrence Chen DO) H/O right coronary artery stent placement (Acute 11/07/17) Atherosclerosis of coronary artery of circle heart with angina pectoris (Acute) Atypical chest pain (Resolved) History of left heart catheterization (Resolved) 1. Chest pain: for her continued CP and SOB, will proceed with a heart cath. 2. Hypertension: Pt will continue with home medications, will adjust according 3. Non-ischemic cardiomyopathy: She will continue with appropriate medical therapy 4. BiV-ICD: pt will continue with routine f/u in office
--- NOTE | 2017-11-23 16:39 | HP.PCM_ITS ---
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 She was admitted on 10/22/2017 for chest pain and SOB. Her troponins were negative x3. She did have a stress test which was negative for ischemia. Her medications were adjusted. She called our office after she was discharged with continued chest pain and SOB. She has a CT of her chest which was negative for PE. She was started in Isosorbide and set up for a heart cath. She does have a history of non ischemic cardiomyopathy with BiV- ICD, and hypertension. She sts that since she started the Isosorbide she has not had any further chest pain.] Past Medical History Past Medical History (Chronic Problems): Chronic Problems (Last Reviewed 11/16/17 @ 15:56 by Terrence Chen DO) Non-ischemic cardiomyopathy (Chronic) S/P biventricular synchronization ICD Dyspnea (Chronic) Malaise and fatigue (Chronic) Nonrheumatic mitral (valve) insufficiency (Chronic) Nonrheumatic tricuspid (valve) insufficiency (Chronic) Mild (1+) per echo 03/24/2015 Hypertension (Chronic) Left bundle branch hemiblock (Chronic) Chronic systolic congestive heart failure (Chronic) EF 25% per echo 03/24/2015 Biventricular automatic implantable cardioverter defibrillator in situ (Chronic) Implanted 12/19/[address] Hathaway @ [facility] Paroxysmal ventricular tachycardia (Chronic) Medical History: Medical History (Last Reviewed 11/16/17 @ 15:56 by Terrence Chen DO) Atherosclerosis of coronary artery of kashia heart with angina pectoris (Acute) I25.119 GIB-PPI-Phle RCA w/ 3.0 x 16 mm Promus Synergy 11/07/17 Non-ischemic cardiomyopathy (Chronic) I42.8 S/P biventricular synchronization ICD Nonrheumatic mitral (valve) insufficiency (Chronic) I34.0 Nonrheumatic tricuspid (valve) insufficiency (Chronic) I36.1 Mild (1+) per echo 03/24/2015 Hypertension (Chronic) I10 Left bundle branch hemiblock (Chronic) I44.60 Chronic systolic congestive heart failure (Chronic) I50.22 EF 25% per echo 03/24/2015 Paroxysmal ventricular tachycardia (Chronic) I47.2 Allergies diamox eye drops Adverse Reaction (Intermediate, Uncoded 11/04/17 09:12) Itching eyes Home Medications: Ambulatory Orders Medication Instructions Recorded aspirin 81 mg tablet,delayed 81 mg PO QDAY 03/16/17 release dorzolamide 2 % eye drops 1 drp OPHTHALMIC BID ml 03/16/17 sertraline 100 mg tablet 100 mg PO QDAY #90 tab 08/11/17 Carvedilol [Coreg (Beta Patty)] 12.5 mg PO BID tab 10/22/17 furosemide 40 mg tablet 40 mg PO QDAY #90 tab 10/26/17 atorvastatin 40 mg tablet 40 mg PO QHS #90 tab 11/16/17 clopidogrel 75 mg tablet 75 mg PO DAILY #90 tab 11/16/17 losartan 100 mg tablet 100 mg PO DAILY tab 11/16/17 tramadol 50 mg tablet 50 mg PO Q6H PRN #60 tab 11/16/17 trazodone 50 mg tablet 50 mg PO QHS PRN #90 tab 11/17/17 Surgical History: Surgical History (Last Reviewed 11/16/17 @ 15:56 by Terrence Chen DO) H/O right coronary artery stent placement (Acute) Onset Date: 11/07/17 Z95.5 QIG-DAH-Jaql RCA w/ 3.0 x 16 mm Promus Synergy 11/07/17 Biventricular automatic implantable cardioverter defibrillator in situ (Chronic) Z95.810 Implanted 12/19/[address] Hathaway @ [facility] History of left heart catheterization (Resolved) Z98.890 12/01/2009 @ [facility] per Dr. Hanks: normal coronaries Smoking Status: Never smoker - *Family History Paternal Family History: Family History (Last Reviewed 11/16/17 @ 15:56 by Terrence Chen DO) Mother Hypertension Hyperlipidemia Stomach cancer Diabetes Arthritis Brother Diabetes Other Family history of hyperlipidemia Family history of hypertension History Items: No pertinent history Review of Systems Constitutional: Denies: Chills, Fever, Weight Change HEENT: Denies: Head Aches Cardiovascular: Reports: Chest Pain. Denies: Palpitations Respiratory: Reports: Shortness of breath at rest. Denies: Cough, Sputum production Gastrointestinal: Denies: Abdominal Pain, Nausea, Vomiting Genitourinary: Denies: Dysuria Musculoskeletal: Denies: Joint Pain, Joint Tenderness Hematologic/ Lymphatic: Denies: Easy Bruising, Easy Bleeding VTE Information - Inpt Only VTE Present on Admission: No - Physical Exam General: Alert, Oriented x3, Cooperative HEENT: Atraumatic, PERRLA, EOMI, Normocephalic Neck: Supple, No JVD, Negative Carotid Bruits Lungs: Clear to auscultation, Normal air movement Cardiovascular: Regular rate, Murmur - 1/6 JONATHAN LLSB Abdomen: Bowel Sounds Present, Soft, Non Tender Neurological: Cranial nerves II-XII grossly intact Vital Signs Temp Pulse Resp BP Pulse Ox 98.4 F 80 16 144/59 H 99 11/08/17 07:00 11/08/17 08:00 11/08/17 08:00 11/08/17 08:00 11/08/17 08:00 Oxygen Delivery Method Room Air Weight: 168 lb 15.996 oz Body Mass Index (BMI) 29.9 Assessment/Plan All Active Problems (Last Reviewed 11/16/17 @ 15:56 by Terrence Chen DO) H/O right coronary artery stent placement (Acute 11/07/17) Atherosclerosis of coronary artery of kashia heart with angina pectoris (Acute) Atypical chest pain (Resolved) History of left heart catheterization (Resolved) 1. Chest pain: for her continued CP and SOB, will proceed with a heart cath. 2. Hypertension: Pt will continue with home medications, will adjust according 3. Non-ischemic cardiomyopathy: She will continue with appropriate medical therapy 4. BiV-ICD: pt will continue with routine f/u in office
== END 2017-11-08 09:30 | disposition home or self-care (01) ==
LOC: ICU 11-08 09:32
PROVIDERS: Internal Medicine Cardiovascular Disease; Admitting Provider Internal Medicine Cardiovascular Disease; Family Provider Family Medicine; PCP Family Medicine; Visit Provider Internal Medicine Cardiovascular Disease
DX: I25.110 Atherosclerotic heart disease of native coronary artery with unstable angina pectoris (principal); E78.5 Hyperlipidemia, unspecified; R94.31 Abnormal electrocardiogram [ECG] [EKG]; Z95.810 Presence of automatic (implantable) cardiac defibrillator; I42.8 Other cardiomyopathies; I47.2 Ventricular tachycardia; I11.0 Hypertensive heart disease with heart failure; I50.22 Chronic systolic (congestive) heart failure; Z79.899 Other long term (current) drug therapy; Z79.82 Long term (current) use of aspirin; Z79.02 Long term (current) use of antithrombotics/antiplatelets
CPT/HCPCS: 80048; 80061; 85027; 85347; 92928; 93005; 93458; 96361; 96374; 96375; 99152; 99153; 99218; J7030; J7040; Q9967; A4216; C1725; C1769; C1874; C1887; C1894; C9600; G0378; G0379

== ENCOUNTER → 2017-11-17 08:01 | Outpatient (CLI) | payer OTHER, SELFPAY ==
--- NOTE | 2017-11-17 08:10 | PCM.CR.HP2 ---
CR - History & Physical - General Arrival date:: 11/17/17 Arrival time:: 08:10 Date of Referral:: 11/17/17 Date of CR Evaluation:: 11/17/17 Referring Physician: Dr. Toñito Hanks Primary Diagnosis: PCI - History of Present Cardiac Event Onset Date: Enter Onset Date of cardiac illnesses in Comment field below Current stable Angina Pectoris:: Yes Acute Myocardial Infarction within 12 months:: No Coronary Artery Bypass Graft:: No Heart valve replacement or repair:: No PTCA or coronary stenting:: Yes - 11/07/17 Heart or Heart-Lung Transplant:: No Heart Failure EF <35%:: Yes - 47% Type of Symptoms:: Chest pain, SOB, fatigue. Interventions with present event:: Stress test, PCI Were there any complications?: no - Medications Home Medications: Ambulatory Orders Medication Instructions Recorded aspirin 81 mg tablet,delayed 81 mg PO QDAY 03/16/17 release dorzolamide 2 % eye drops 1 drp OPHTHALMIC BID ml 03/16/17 sertraline 100 mg tablet 100 mg PO QDAY #90 tab 08/11/17 trazodone 50 mg tablet 50 mg PO QHS PRN #60 tab 10/14/17 Carvedilol [Coreg (Beta Patty)] 12.5 mg PO BID tab 10/22/17 furosemide 40 mg tablet 40 mg PO QDAY #90 tab 10/26/17 atorvastatin 40 mg tablet 40 mg PO QHS #90 tab 11/16/17 clopidogrel 75 mg tablet 75 mg PO DAILY #90 tab 11/16/17 losartan 100 mg tablet 100 mg PO DAILY tab 11/16/17 tramadol 50 mg tablet 50 mg PO Q6H PRN #60 tab 11/16/17 - Allergies Allergies/Adverse Reactions: Allergies diamox eye drops Adverse Reaction (Intermediate, Uncoded 11/04/17 09:12) Itching eyes - Sleep Disorder Evaluation Hx of Sleep Apnea: No Do you snore loudly (louder than talking or can be heard through closed doors)?: No Do you often feel tired/ fatigued/ sleepy during daytime?: Yes Has anyone observed you stop breathing during sleep?: No History of Hypertension (for STOP score): Yes STOP Results: Positive Advanced Directives - Advanced Directives Power of Custom Decorating Consultant: No Living Will: No Advance Directives Information Provided: Yes Advance Directives on File: No DNR Order?:: No - MOLST See MOLST form: No Past Medical History - Past Medical Illness Medical History: Past Medical History (Last Reviewed 11/16/17 @ 15:56 by Terrence Chen DO) Atherosclerosis of coronary artery of teller heart with angina pectoris (Acute) I25.119 [id number] RCA w/ 3.0 x 16 mm Promus Synergy 11/07/17 Non-ischemic cardiomyopathy (Chronic) I42.8 S/P biventricular synchronization ICD Nonrheumatic mitral (valve) insufficiency (Chronic) I34.0 Nonrheumatic tricuspid (valve) insufficiency (Chronic) I36.1 Mild (1+) per echo 03/24/2015 Hypertension (Chronic) I10 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 Hathaway @ [facility] History of left heart catheterization (Resolved) Z98.890 12/01/2009 @ [facility] per Dr. Hanks: normal coronaries - Family History Summary Family History: Family History (Last Reviewed 11/16/17 @ 15:56 by Terrence Chen DO) Mother , age 73 from stomach malignancy Hypertension Hyperlipidemia Stomach cancer Diabetes Arthritis Brother Diabetes Other Family history of hyperlipidemia Family history of hypertension Social History - Smoking History Smoking Status: Current every day smoker Years Smokin Hx Tobacco Use: Yes Hx Smoking Exposure: Yes - Alcohol Use Alcohol Usage: Yes - occas glass of wine. - Substance Abuse Hx Substance Use: No - Occupation Occupation (List type of work in comments):: Employed - [employer]. Hours worked per day:: 8 Returned to work on:: 11/19/17 - Hobbies, Recreation, Social Activities Hobbies: Reading Recreational Activities: I am able to engage in all my recreational activities Social Environment - Status Marital Status: Single - Current Living Arrangements Living Environment:: Family - daughter - Children How many children do you have?: 1 Do any of your children live nearby?: Yes - Safety Do you feel safe in your surroundings?: Yes - Assistance Do you need any assistance at home?: no Review of Systems - Review of Systems Hints: Right click = Denies (Slash). Left click = Reports ([place]) Review of Present Symptoms: Reports: Fatigue, Appetite - Special Diet. Denies: Shortness of Breath at Rest, Shortness of Breath with Exertion, PVD, Operative Discomfort, Angina, Wound Healing, Dizziness/Lightheadedness, Heart Arrhythmia/Irregularities, Appetite - Normal, Sleep - Normal, Sexual Changes - Pain Is Patient Pain Free?: Yes Pain Location: back Pain Level: 7/10 Previous experience dealing with pain?: tramodol for back pain. Risk Factor Assessment - Chief Complaint Chief Complaint: PCI - Vital Signs Pulse Ox: 100 - Pulse Pulse Rate: 71 Pulse Rhythm: Regular - Hypertension How long have you been treated?: 1990 On medication(s)?: yes Blood Pressure Sitting - Right Arm: 140/70 Blood Pressure Sitting - Left Arm: 120/74 - Stress Stress: Work-related - Diabetes Nutrition Referral for Diabetes: No - Obesity Height: 1.6 m Weight:: 75.296 kg Weight in Pounds: 166.0 lbs Body Mass Index (BMI): 29.4 Desired Body Weight: 135 Realistic Weight Goal (Loss of 1-2 lbs/week): 154 Nutritional Referral for Obesity: Yes - Physical Inactivity Physical Inactivity: Reg Exercise 30 min/day - Risk Stratification Risk Guidelines: Lowest Risk: Risk Factor for Diabetes, Moderate Risk: Risk Factor for Smoking, Risk Factor for Dyslipidemia, Risk Factor for Obesity, Risk Factor for Hypertension, Risk Factor for Sedentary Lifestyle, Risk Factor for Depression - For Smoking Smoking Risk Guidelines: Smoking Low Risk: None or quit greater than 6 months ago. Smoking Moderate Risk: Smoker or quit 6 months or less ago. Smoking High Risk: Smoker - For Dyslipidemia Dyslipidemia Risk Guidelines: Low Risk: Moderate Risk: High Risk: 15-25% fat 25.1-29% fat >/= 30% fat. <7% sat fat 7-9% sat fat >9% sat fat. <150 mg chol 150-299 mg chol >/= 300 mg chol. LDL <100 LDL 100-129 LDL >/= 130. Chol/HDL ratio <5.0 Chol/HDL ratio 5.0-6.0 Chol/HDL ratio >6.0. Triglycerides <100 Triglycerides 100-149 Triglycerides >/= 150 - For Diabetes Mellitus Diabetes Risk Guidelines: Diabetes Low Risk: HgA1c <6.5% and/or FBG <120. Diabetes Moderate Risk: HgA1c 6.6-7.9% and/or FBG 120-180. Diabetes High Risk: HgA1c >/= 8% and/or FBG >180 - For Obesity/Overweight Obesity/Overweight Risk Guidelines: Obesity Low Risk: BMI <25.0. Obesity Moderate Risk: BMI 25-29.9. Obesity High Risk: BMI >/= 30.0 - For Hypertension Hypertension Risk Guidelines: Hypertension Low Risk: Systolic <120 and Diastolic <80. Hypertension Moderate Risk: Systolic 120-139 and Diastolic 80-89. Hypertension High Risk: Systolic >/= 140 and Diastolic >/= 90 - For Sedentary Lifestyle Sedentary Lifestyle Risk Guidelines: Sedentary Lifestyle Low Risk: >/= 1,500 kcal/week. Sedentary Lifestyle Moderate Risk: 700-1,499 kcal/week. Sedentary Lifestyle High Risk: < 700 kcal/week - For Depression Depression Risk Guidelines: Depression Low Risk: Not clinically depressed. Depression Moderate Risk: Mildly depressed. Depression High Risk: Clinically depressed - Family History Family History: Family History (Last Reviewed 11/16/17 @ 15:56 by Terrence Chen DO) Mother Hypertension Hyperlipidemia Stomach cancer Diabetes Arthritis Brother Diabetes Other Family history of hyperlipidemia Family history of hypertension Motivation - Motivation to Participate On a scale of 1 to 10, how prepared are you to commit to attending program?: 9
--- NOTE | 2017-11-17 08:13 | CR.ITP_ITS ---
General Information - General Information Admitting Diagnosis: PCI - Education/Goals Barriers to Learning: None Individual Counseling: Initial Assessment: Nicotine/Smoking, Abnormal Cholesterol Levels, High Blood Pressure, Overweight/Obesity, Hypertension, Sedentary Lifestyle, Stress, Family History of Heart Disease (under 65 years) Cardiac Rehabilitation Goals: 1. Maintain the individual as the primary focus of care. 2. To improve the patient's quality of life. 3. Identification of cardiac risk factors and provide cardiac risk factor management. 4. Enhance the psychosocial status of the patient. 5. Reconditioning enough to allow the patient to resume customary activities. 6. Control symptoms of cardiac disease Scale for measuring improvement of personal goals: Enter appropriate number in Comments. 2 = Unchanged. 3 = Slightly Better. 4 = Moderate Improvement. 5 = Met my Goal Personal Goals: Initial Assessment: Quit smoking (participate in smoking cessation, Improve management of stress and emotions, Improve energy level, Improve knowledge of cardiac disease, Improve diet and eating habits (eat healthier), Control risk factors (learn risk factor modification) Exercise - Initial Assessment - Visit Date of Eval: 11/17/17 - Stages of Change Stages of Change:: Action - Exercise Prescription Mode:: Treadmill, Biodyne, Rower, Airdyne, NuStep - Hypertension Do any of the following apply?: Yes - Intervention Home Exercise/Activity Goal:: Moderate Exercise 30 min/day x 5 days/wk - Education Goals:: Warm-up, RPE OZIEL Scale, S/S, Safe Exercise, Self-Monitoring - Exercise Program Goals Exercise Program Goals: Aerobic Activity >30 min Nutrition - Initial Assessment - Program Goals Nutrition Program Goals: LDL <70. Total Cholesterol <200. HDL >45. Triglycerides <150. HgbA1C <7%. BMI <25 - Visit Date of Assessment:: 11/17/17 - Stages of Change Stages of Change:: Action - Diabetes Diabetes:: No - Weight Management Height: 1.6 m Weight:: 75.296 kg Weight Goal (kg):: 61.235 kg Body Fat %:: 29 Goal % Body Fat:: 25 - Intervention Referral to dietitian:: Yes Referral to Diabetic Clinic:: No Will attend diet classes:: Yes - Education Gave educational materials for:: Relate diabetes to coronary artery disease, Healthy eating Tobacco - Initial Assessment - Program Goals Tobacco Program Goals: Complete smoking cessation. Attend education classes. Improve Knowledge Test score - Stage of Change Stages of Change:: Action - Learning Barriers Learning Barriers: Ready to Learn Total Score:: 14 - Family Support Do you have family support?: Yes - Tobacco Use Tobacco Use: Cigarettes How many cigarettes do you smoke per day?: 1 Years Smokin Do you use smokeless tobacco?: No - Intervention Smoking Cessation Referral:: Yes Individual Education/Counseling:: Yes Education Schedule Given:: Yes - Education Gave educational material for:: Tobacco triggers, Coronary artery disease, Risk factors, Sexuality, Medical compliance, Cardiac A&P, Angina signs & symptoms Psychosocial - Initial Assess - Target Goals Target Goals: Assess presence or absence of depression. Using a valid screening tool, maximizes coping skills. Positive support system - Stages of Change Stages of Change:: Action - Psychosocial Test Tool Used:: HANDS Depression Questionnaire Self-reported stress:: yes Total Mood Screening Score:: 6 Self-Efficacy Score:: 9 - Intervention PS - Interventions: Yes Attend Stress Management Classes, Yes Uses Stress Management Skills, No Referral to Mental Health, No Referral to [facility] Case Management, No Referral to Physician - Education Gave educational materials for:: Coping techniques, Signs & symptoms of depression, Stress management, Relaxation techniques - Patient/Program Goal Preventative Medication(s):: Aspirin, REEMA inhibitor, Clopidogrel, Beta reynold, Statin/lipid - Assistive Devices Assistive Devices:: None Fall Risk Assessed:: Yes Patient Health Questionnaire Initial Assessment 1. Little interest or pleasure in doing things: Several days 2. Feeling down, depressed, or hopeless: Several days 3. Trouble falling or staying asleep, or sleeping too much: Several days 4. Feeling tired or having little energy: Several days 5. Poor appetite or overeating: Several days 6. Feeling bad about yourself -- or that you are a failure or have let yourself or your family down: Several days 7. Trouble concentrating on things, such as reading the newspaper or watching television: Not at all 8. Moving or speaking so slowly that other people could have noticed. Or the opposite - being so fidgety or restless that you have been moving around a lot more than usual: Not at all 9. Thoughts that you would be better off , or of hurting yourself in some way: Not at all How difficult have these problems made it for you to do your work, take care of things at home, or get along with other people?: Somewhat difficult Total Score: 6 USMAN-Q SV Test - Statements CAD is a disease of the arteries in the heart: False Examples of risk factors for heart disease: True Angina is chest pain or discomfort: True The benefits of resistance training include: I Don't Know Eating more meat and dairy products: False Anti-platelet medications such as aspirin are important: I Don't Know The only effective way to manage stress: False An exercise warm-up slowly increases heart rate: True Prepared, processed foods usually have high sodium: True Depression is common after a heart attack: I Don't Know The statin medications lower cholesterol: True To control blood pressure, lower the amount of sodium: True If someone gets chest discomfort during walking: False Transfats are partially hydrogenated vegetable oils: I Don't Know Sleep apnea that is not treated increases the risk: False To control cholesterol, one should become a vegetarian: False Someone knows if he/she is exercising at the right level: I Don't Know Diabetes cannot be prevented with exercise & health eating: I Don't Know Stress is a large risk for heart attack: True A diet that can help lower blood pressure is rich in: True - Total Score Total Correct Responses: 14 Self-Efficacy Initial Assessment We would like to know how confident you are in doing certain activities. Please select your confidence level for:: Select your confidence level for the following using the scale 1-10 where 1 is not at all confident and 10 is totally confident. Your score is the average of all 6 responses. Fatigue: How confident are you that you can keep the fatigue caused by your disease from interfering with the things you want to do? Select Number: 9 Physical Discomfort or Pain: How confident are you that you can keep the physical discomfort or pain of your disease from interfering with the things you want to do? Select Number: 9 Emotional Distress: How confident are you that you can keep the emotional distress caused by your disease from interfering with the things you want to do? Select Number: 10 Other Symptoms or Health Problems: How confident are you that you can keep other symptoms or health problems from interfering with the things you want to do? Select Number: 9 Different Tasks and Activities: How confident are you that you can do the different tasks and activities needed to manage your health condition so as to reduce your need to see a doctor? Select Number: 10 Medication: How confident are you that you can do things other than just taking medication to reduce how much your illness affects your everyday life? Select Number: 10 Total Score:: 9 Nutrition Survey - Nutrition Survey Instructions Scoring Instructions: Scoring is as follows: Yes = 1 points. No = 0 point. Patient score that is >/=12 is considered to be at potential nutritional risk and could benefit from a referral to a registered dietitian. - Nutrition Survey Initial Have you lost >10 lbs over the past 2 months without trying?: No Are you following a special diet at home for diabetes, low fat, or low salt?: No Are you interested in meeting with a dietitian for help understanding your diet? : Yes Do you eat less than 3 meals a day?: Yes Do you eat fatty meats (scott, sausage, ribs, etc), fried foods, desserts, large amounts of salad dressings, margarine, butter, or cheese most days?: Yes Do you have food allergies? [Enter types in comment field]: No Do you eat in restaurants more than 3 times a week?: No Do you season food with salt, seasoning salt, or garlic salt?: No Do you used canned, boxed, frozen meals, or soups, seasoning packets?: Yes Total Score:: 4
--- NOTE | 2017-11-17 08:38 | CR.HP_ITS ---
CR - History & Physical - General Arrival date:: 11/17/17 Arrival time:: 08:10 Date of Referral:: 11/17/17 Date of CR Evaluation:: 11/17/17 Referring Physician: Dr. Toñito Hanks Primary Diagnosis: PCI - History of Present Cardiac Event Onset Date: Enter Onset Date of cardiac illnesses in Comment field below Current stable Angina Pectoris:: Yes Acute Myocardial Infarction within 12 months:: No Coronary Artery Bypass Graft:: No Heart valve replacement or repair:: No PTCA or coronary stenting:: Yes - 11/07/17 Heart or Heart-Lung Transplant:: No Heart Failure EF <35%:: Yes - 47% Type of Symptoms:: Chest pain, SOB, fatigue. Interventions with present event:: Stress test, PCI Were there any complications?: no - Medications Home Medications: Ambulatory Orders Medication Instructions Recorded aspirin 81 mg tablet,delayed 81 mg PO QDAY 03/16/17 release dorzolamide 2 % eye drops 1 drp OPHTHALMIC BID ml 03/16/17 sertraline 100 mg tablet 100 mg PO QDAY #90 tab 08/11/17 trazodone 50 mg tablet 50 mg PO QHS PRN #60 tab 10/14/17 Carvedilol [Coreg (Beta Patty)] 12.5 mg PO BID tab 10/22/17 furosemide 40 mg tablet 40 mg PO QDAY #90 tab 10/26/17 atorvastatin 40 mg tablet 40 mg PO QHS #90 tab 11/16/17 clopidogrel 75 mg tablet 75 mg PO DAILY #90 tab 11/16/17 losartan 100 mg tablet 100 mg PO DAILY tab 11/16/17 tramadol 50 mg tablet 50 mg PO Q6H PRN #60 tab 11/16/17 - Allergies Allergies/Adverse Reactions: Allergies diamox eye drops Adverse Reaction (Intermediate, Uncoded 11/04/17 09:12) Itching eyes - Sleep Disorder Evaluation Hx of Sleep Apnea: No Do you snore loudly (louder than talking or can be heard through closed doors)? : No Do you often feel tired/ fatigued/ sleepy during daytime?: Yes Has anyone observed you stop breathing during sleep?: No History of Hypertension (for STOP score): Yes STOP Results: Positive Advanced Directives - Advanced Directives Power of Brand Planner: No Living Will: No Advance Directives Information Provided: Yes Advance Directives on File: No DNR Order?:: No - MOLST See MOLST form: No Past Medical History - Past Medical Illness Medical History: Past Medical History (Last Reviewed 11/16/17 @ 15:56 by Terrence Chen DO) Atherosclerosis of coronary artery of [place] heart with angina pectoris (Acute) I25.119 [id number] RCA w/ 3.0 x 16 mm Promus Synergy 11/07/17 Non-ischemic cardiomyopathy (Chronic) I42.8 S/P biventricular synchronization ICD Nonrheumatic mitral (valve) insufficiency (Chronic) I34.0 Nonrheumatic tricuspid (valve) insufficiency (Chronic) I36.1 Mild (1+) per echo 03/24/2015 Hypertension (Chronic) I10 Left bundle branch hemiblock (Chronic) 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 Hathaway @ [facility] History of left heart catheterization (Resolved) Z98.890 12/01/2009 @ [facility] per Dr. Hanks: normal coronaries - Family History Summary Family History: Family History (Last Reviewed 11/16/17 @ 15:56 by Terrence Chen DO) Mother , age 73 from stomach malignancy Hypertension Hyperlipidemia Stomach cancer Diabetes Arthritis Brother Diabetes Other Family history of hyperlipidemia Family history of hypertension Social History - Smoking History Smoking Status: Current every day smoker Years Smokin Hx Tobacco Use: Yes Hx Smoking Exposure: Yes - Alcohol Use Alcohol Usage: Yes - occas glass of wine. - Substance Abuse Hx Substance Use: No - Occupation Occupation (List type of work in comments):: Employed - [employer]. Hours worked per day:: 8 Returned to work on:: 11/19/17 - Hobbies, Recreation, Social Activities Hobbies: Reading Recreational Activities: I am able to engage in all my recreational activities Social Environment - Status Marital Status: Single - Current Living Arrangements Living Environment:: Family - daughter - Children How many children do you have?: 1 Do any of your children live nearby?: Yes - Safety Do you feel safe in your surroundings?: Yes - Assistance Do you need any assistance at home?: no Review of Systems - Review of Systems Hints: Right click = Denies (Slash). Left click = Reports ([place]) Review of Present Symptoms: Reports: Fatigue, Appetite - Special Diet. Denies: Shortness of Breath at Rest, Shortness of Breath with Exertion, PVD, Operative Discomfort, Angina, Wound Healing, Dizziness/Lightheadedness, Heart Arrhythmia/ Irregularities, Appetite - Normal, Sleep - Normal, Sexual Changes - Pain Is Patient Pain Free?: Yes Pain Location: back Pain Level: 7/10 Previous experience dealing with pain?: tramodol for back pain. Risk Factor Assessment - Chief Complaint Chief Complaint: PCI - Vital Signs Pulse Ox: 100 - Pulse Pulse Rate: 71 Pulse Rhythm: Regular - Hypertension How long have you been treated?: 1990 On medication(s)?: yes Blood Pressure Sitting - Right Arm: 140/70 Blood Pressure Sitting - Left Arm: 120/74 - Stress Stress: Work-related - Diabetes Nutrition Referral for Diabetes: No - Obesity Height: 1.6 m Weight:: 75.296 kg Weight in Pounds: 166.0 lbs Body Mass Index (BMI): 29.4 Desired Body Weight: 135 Realistic Weight Goal (Loss of 1-2 lbs/week): 154 Nutritional Referral for Obesity: Yes - Physical Inactivity Physical Inactivity: Reg Exercise 30 min/day - Risk Stratification Risk Guidelines: Lowest Risk: Risk Factor for Diabetes, Moderate Risk: Risk Factor for Smoking, Risk Factor for Dyslipidemia, Risk Factor for Obesity, Risk Factor for Hypertension, Risk Factor for Sedentary Lifestyle, Risk Factor for Depression - For Smoking Smoking Risk Guidelines: Smoking Low Risk: None or quit greater than 6 months ago. Smoking Moderate Risk: Smoker or quit 6 months or less ago. Smoking High Risk: Smoker - For Dyslipidemia Dyslipidemia Risk Guidelines: Low Risk: Moderate Risk: High Risk: 15-25% fat 25.1-29% fat >/= 30% fat. <7% sat fat 7-9% sat fat >9% sat fat. <150 mg chol 150-299 mg chol >/= 300 mg chol. LDL <100 LDL 100-129 LDL >/= 130. Chol/HDL ratio <5.0 Chol/HDL ratio 5.0-6.0 Chol/HDL ratio >6.0. Triglycerides <100 Triglycerides 100-149 Triglycerides >/= 150 - For Diabetes Mellitus Diabetes Risk Guidelines: Diabetes Low Risk: HgA1c <6.5% and/or FBG <120. Diabetes Moderate Risk: HgA1c 6.6-7.9% and/or FBG 120-180. Diabetes High Risk: HgA1c >/= 8% and/or FBG >180 - For Obesity/Overweight Obesity/Overweight Risk Guidelines: Obesity Low Risk: BMI <25.0. Obesity Moderate Risk: BMI 25-29.9. Obesity High Risk: BMI >/= 30.0 - For Hypertension Hypertension Risk Guidelines: Hypertension Low Risk: Systolic <120 and Diastolic <80. Hypertension Moderate Risk: Systolic 120-139 and Diastolic 80-89. Hypertension High Risk: Systolic >/= 140 and Diastolic >/= 90 - For Sedentary Lifestyle Sedentary Lifestyle Risk Guidelines: Sedentary Lifestyle Low Risk: >/= 1 ,500 kcal/week. Sedentary Lifestyle Moderate Risk: 700-1,499 kcal/week. Sedentary Lifestyle High Risk: < 700 kcal/week - For Depression Depression Risk Guidelines: Depression Low Risk: Not clinically depressed. Depression Moderate Risk: Mildly depressed. Depression High Risk: Clinically depressed - Family History Family History: Family History (Last Reviewed 11/16/17 @ 15:56 by Terrence Chen DO) Mother Hypertension Hyperlipidemia Stomach cancer Diabetes Arthritis Brother Diabetes Other Family history of hyperlipidemia Family history of hypertension Motivation - Motivation to Participate On a scale of 1 to 10, how prepared are you to commit to attending program?: 9
[2017-11-17 09:09] VITALS: BP 120/74; BP 140/70; PULSE 71; O2SAT 100; BMI 29.4
== END ==
PROVIDERS: Family Provider Family Medicine; PCP Family Medicine; Visit Provider Internal Medicine Cardiovascular Disease
DX: Z95.5 Presence of coronary angioplasty implant and graft (principal)

== ENCOUNTER 2017-12-19 09:18 | Outpatient (RCR) | payer OTHER, SELFPAY | END 2017-12-19 23:59 | disposition home or self-care (01) | LOC: NS 09:18 | PROVIDERS: Family Provider Family Medicine; PCP Family Medicine; Visit Provider Internal Medicine Cardiovascular Disease | DX: E66.9 Obesity, unspecified (principal); Z68.29 Body mass index [BMI] 29.0-29.9, adult; R73.03 Prediabetes; I42.9 Cardiomyopathy, unspecified; Z71.3 Dietary counseling and surveillance | CPT/HCPCS: 97802 ==

== ENCOUNTER → 2017-12-27 17:30 | Outpatient (CLI) | payer OTHER, SELFPAY ==
--- NOTE | 2017-12-27 17:36 | BI_ITS ---
MAMMOGRAPHY - BILATERAL SCREENING REASON FOR EXAM: Female, 67 years old. Routine annual screening examination. PERTINENT HISTORY: Aunt with breast cancer. Remote right excisional breast biopsy. TECHNIQUE: Digital bilateral breast ismael (3D mammographic acquisition) in the CC and MLO projections. 2-D mediolateral oblique (MLO) and craniocaudad (CC) views of both breasts were obtained. CAD: Full Field Digital Mammography with Computer Added Detection was performed. COMPARISON: Comparison is made with prior examination dated December 07, 2016 and December 04, 2015. FINDINGS: Breast Composition: There are scattered areas of fibroglandular density. There are no dominant masses or suspicious calcifications. Stable small benign-appearing bilateral axillary lymph nodes. No other significant abnormalities are identified. There has been no significant change since the prior study. BI/SCREENING MAMM (CAD), BILAT IMPRESSION: Stable bilateral screening mammogram. Yearly follow-up mammogram recommended. (A) ASSESSMENT CATEGORY: BIRADS Category 2: Benign. A letter regarding these results will be sent to the patient by the facility within 30 days. Approximately 10% of breast cancers are not detected by mammography. A normal mammogram should not delay biopsy of a clinically suspicious abnormality. [id number] Electronically Signed: Familia Lugo MD at 8:10 EDT Tel [phone], Service support ,
== END ==
PROVIDERS: Family Provider Family Medicine; PCP Family Medicine; Visit Provider Obstetrics & Gynecology
DX: Z12.31 Encounter for screening mammogram for malignant neoplasm of breast (principal)
CPT/HCPCS: 77063; 77067

== ENCOUNTER 2017-12-28 13:00 | Outpatient (RCR) | payer OTHER, SELFPAY ==
[2017-12-16 08:23] VITALS: BP 128/70; BP 136/74
--- NOTE | 2017-12-16 08:24 | CR.ITP_ITS ---
General Information - General Information Admitting Diagnosis: PCI - Education/Goals Cardiac Rehabilitation Goals: 1. Maintain the individual as the primary focus of care. 2. To improve the patient's quality of life. 3. Identification of cardiac risk factors and provide cardiac risk factor management. 4. Enhance the psychosocial status of the patient. 5. Reconditioning enough to allow the patient to resume customary activities. 6. Control symptoms of cardiac disease Scale for measuring improvement of personal goals: Enter appropriate number in Comments. 2 = Unchanged. 3 = Slightly Better. 4 = Moderate Improvement. 5 = Met my Goal Exercise - 30-day Assessment - Visit Date of Eval: 12/16/17 Session #:: 5 - Stages of Change Stages of Change:: Action - Exercise Prescription Mode:: Treadmill, Airdyne, NuStep, Arm Ergometer Frequency (x/week): 3 Duration:: 30 METs - Progression: 0.5-1 MET as tolerated: 2.5 Target Heart Rate:: 114-122 Max HR 120 - Hypertension Resting Blood Pressure:: 128/70 Peak Exercise Blood Pressure:: 136/74 Medication Changes:: No - Intervention Home Exercise/Activity Goal:: Sitting Time <3 hrs/day - Education Goals:: Warm-up, RPE OZIEL Scale, S/S, Safe Exercise, Self-Monitoring - Exercise Program Goals Exercise Program Goals: Aerobic Activity >30 min, B/P <130/80 Nutrition - 30-Day Assessment - Program Goals Nutrition Program Goals: LDL <70. Total Cholesterol <200. HDL >45. Triglycerides <150. HgbA1C <7%. BMI <25 - Visit Date of Eval: 12/16/17 - Stages of Change Stages of Change:: Action - Weight Management Weight:: 76.204 kg - Intervention Referral to dietitian:: No Referral to Diabetic Clinic:: No Will attend diet classes:: Yes - Education Attended class for:: Signs & symptoms of hypoglycemia, Signs & symptoms of hyperglycemia, Relate diabetes to coronary artery disease, Healthy eating Tobacco - Initial Assessment - Program Goals Tobacco Program Goals: Complete smoking cessation. Attend education classes. Improve Knowledge Test score - Learning Barriers Learning Barriers: Ready to Learn Tobacco - 30-Day Assessment - Program Goals Tobacco Program Goals: Complete smoking cessation. Attend education classes. Improve Knowledge Test score - Stage of Change Stages of Change:: Action - Learning Barriers Learning Barriers: Participates in education - Family Support Do you have family support?: Yes - Tobacco Use Tobacco Use: Cigarettes How many cigarettes do you smoke per day?: 1 Do you use smokeless tobacco?: No - Intervention Smoking Cessation Referral:: Yes Individual Education/Counseling:: Yes Education Schedule Given:: Yes - Education Attended class for:: Tobacco triggers, Coronary artery disease, Risk factors, Sexuality, Medical compliance, Cardiac A&P, Angina signs & symptoms Psychosocial - Initial Assess - Target Goals Target Goals: Assess presence or absence of depression. Using a valid screening tool, maximizes coping skills. Positive support system - Psychosocial Test Tool Used:: HANDS Depression Questionnaire - Assistive Devices Fall Risk Assessed:: Yes Psychosocial - 30-Day Assess - Target Goals Target Goals: Assess presence or absence of depression. Using a valid screening tool, maximizes coping skills. Positive support system - Stages of Change Stages of Change:: Action - Psychosocial Test Tool Used:: HANDS Depression Questionnaire - Intervention PS - Interventions: Yes Attend Stress Management Classes, Yes Uses Stress Management Skills, No Referral to Mental Health, No Referral to [facility] Case Management, No Referral to Physician - Education Attended classes for:: Coping techniques, Signs & symptoms of depression, Stress management, Relaxation techniques - Assistive Devices Assistive Devices:: None Fall Risk Assessed:: Yes Patient Health Questionnaire 30-Day Re-eval Assessment 1. Little interest or pleasure in doing things: Several days 2. Feeling down, depressed, or hopeless: Several days 3. Trouble falling or staying asleep, or sleeping too much: Several days 4. Feeling tired or having little energy: Several days 5. Poor appetite or overeating: Several days 6. Feeling bad about yourself -- or that you are a failure or have let yourself or your family down: Several days 7. Trouble concentrating on things, such as reading the newspaper or watching television: Several days 8. Moving or speaking so slowly that other people could have noticed. Or the opposite - being so fidgety or restless that you have been moving around a lot more than usual: Not at all 9. Thoughts that you would be better off , or of hurting yourself in some way: Not at all How difficult have these problems made it for you to do your work, take care of things at home, or get along with other people?: Somewhat difficult Total Score: 7 Self-Efficacy 30-Day Re-eval Assessment We would like to know how confident you are in doing certain activities. Please select your confidence level for:: Select your confidence level for the following using the scale 1-10 where 1 is not at all confident and 10 is totally confident. Your score is the average of all 6 responses. Fatigue: How confident are you that you can keep the fatigue caused by your disease from interfering with the things you want to do? Select Number: 10 Physical Discomfort or Pain: How confident are you that you can keep the physical discomfort or pain of your disease from interfering with the things you want to do? Select Number: 10 Emotional Distress: How confident are you that you can keep the emotional distress caused by your disease from interfering with the things you want to do? Select Number: 10 Other Symptoms or Health Problems: How confident are you that you can keep other symptoms or health problems from interfering with the things you want to do? Select Number: 10 Different Tasks and Activities: How confident are you that you can do the different tasks and activities needed to manage your health condition so as to reduce your need to see a doctor? Select Number: 10 Medication: How confident are you that you can do things other than just taking medication to reduce how much your illness affects your everyday life? Select Number: 10 Total Score:: 10
== END 2017-12-28 23:59 ==
LOC: CR 13:00
PROVIDERS: Family Provider Family Medicine; PCP Family Medicine; Visit Provider Internal Medicine Cardiovascular Disease
DX: I25.119 Atherosclerotic heart disease of native coronary artery with unspecified angina pectoris (principal); I34.0 Nonrheumatic mitral (valve) insufficiency; I36.1 Nonrheumatic tricuspid (valve) insufficiency; I44.60 Unspecified fascicular block; I50.22 Chronic systolic (congestive) heart failure; Z95.5 Presence of coronary angioplasty implant and graft; Z95.810 Presence of automatic (implantable) cardiac defibrillator
CPT/HCPCS: 93798; 97802

== ENCOUNTER 2018-01-27 13:00 | Outpatient (RCR) | payer OTHER, SELFPAY ==
[2017-12-29 01:55] VITALS: BP 128/70; BP 136/74
--- NOTE | 2018-01-16 08:35 | PCM.CR.ITP ---
Exercise - 60-Day Assessment - Visit Date of Eval: 01/16/18 Session #:: 24 - Stages of Change Stages of Change:: Action - Exercise Prescription Mode:: Treadmill, Rower, Airdyne, NuStep Frequency (x/week): 3 Duration:: 35 METs: 3.1 Target Heart Rate:: 114-122 with max HR 122 - Hypertension Resting Blood Pressure:: 114/80 Peak Exercise Blood Pressure:: 148/62 Medication Changes:: No - Intervention Home Exercise/Activity Goal:: Moderate Exercise 30 min/day x 5 days/wk - Education Goals:: Warm-up, RPE OZIEL Scale, S/S, Safe Exercise, Self-Monitoring - Exercise Program Goals Exercise Program Goals: Aerobic Activity >30 min Nutrition - 60-Day Assessment - Program Goals Nutrition Program Goals: LDL <70. Total Cholesterol <200. HDL >45. Triglycerides <150. HgbA1C <7%. BMI <25 - Visit Date of Eval: 01/16/18 - Stages of Change Stages of Change:: Action - Lipids Has the patient seen the dietitian?: Yes - Diabetes Diabetes:: No Insulin: No Non-Insulin Dependent?: No - Weight Management Weight:: 167 lb 8 oz - Intervention Referral to dietitian:: No Referral to Diabetic Clinic:: No Will attend diet classes:: Yes - Education Attended class for:: Healthy eating Tobacco - Initial Assessment - Program Goals Tobacco Program Goals: Complete smoking cessation. Attend education classes. Improve Knowledge Test score - Learning Barriers Learning Barriers: Ready to Learn Tobacco - 60-Day Assessment - Program Goals Tobacco Program Goals: Complete smoking cessation. Attend education classes. Improve Knowledge Test score - Stage of Change Stages of Change:: Action - Learning Barriers Learning Barriers: Participates in education - Family Support Do you have family support?: Yes - Tobacco Use Tobacco Use: Non-smoker Do you use smokeless tobacco?: No - Intervention Education Schedule Given:: Yes - Education Attended class for:: Coronary artery disease, Risk factors, Sexuality, Medical compliance, Cardiac A&P, Angina signs & symptoms Psychosocial - Initial Assess - Target Goals Target Goals: Assess presence or absence of depression. Using a valid screening tool, maximizes coping skills. Positive support system - Psychosocial Test Tool Used:: HANDS Depression Questionnaire - Assistive Devices Fall Risk Assessed:: Yes Psychosocial - 60-Day Assess - Target Goals Target Goals: Assess presence or absence of depression. Using a valid screening tool, maximizes coping skills. Positive support system - Stages of Change Stages of Change:: Action - Psychosocial Test Tool Used:: HANDS Depression Questionnaire - Intervention PS - Interventions: Yes Attend Stress Management Classes, Yes Uses Stress Management Skills, No Referral to Mental Health, No Referral to [facility] Case Management, No Referral to Physician - Education Attended classes for:: Coping techniques, Signs & symptoms of depression, Stress management, Relaxation techniques - Patient/Program Goal Preventative Medication(s):: Aspirin, Clopidogrel, Beta reynold, Statin/lipid - Assistive Devices Assistive Devices:: None Fall Risk Assessed:: Yes Patient Health Questionnaire 60-Day Re-eval Assessment 1. Little interest or pleasure in doing things: Not at all 2. Feeling down, depressed, or hopeless: Not at all 3. Trouble falling or staying asleep, or sleeping too much: Several days 4. Feeling tired or having little energy: Not at all 5. Poor appetite or overeating: Not at all 6. Feeling bad about yourself -- or that you are a failure or have let yourself or your family down: Not at all 7. Trouble concentrating on things, such as reading the newspaper or watching television: Not at all 8. Moving or speaking so slowly that other people could have noticed. Or the opposite - being so fidgety or restless that you have been moving around a lot more than usual: Not at all 9. Thoughts that you would be better off , or of hurting yourself in some way: Not at all Total Score: 1 Self-Efficacy 60-Day Re-eval Assessment We would like to know how confident you are in doing certain activities. Please select your confidence level for:: Select your confidence level for the following using the scale 1-10 where 1 is not at all confident and 10 is totally confident. Your score is the average of all 6 responses. Fatigue: How confident are you that you can keep the fatigue caused by your disease from interfering with the things you want to do? Select Number: 8 Physical Discomfort or Pain: How confident are you that you can keep the physical discomfort or pain of your disease from interfering with the things you want to do? Select Number: 9 Emotional Distress: How confident are you that you can keep the emotional distress caused by your disease from interfering with the things you want to do? Select Number: 9 Other Symptoms or Health Problems: How confident are you that you can keep other symptoms or health problems from interfering with the things you want to do? Select Number: 10 Different Tasks and Activities: How confident are you that you can do the different tasks and activities needed to manage your health condition so as to reduce your need to see a doctor? Select Number: 8 Medication: How confident are you that you can do things other than just taking medication to reduce how much your illness affects your everyday life? Select Number: 9 Total Score:: 8
[2018-01-16 08:38] VITALS: BP 114/80; BP 148/62
== END 2018-01-27 23:59 ==
LOC: CR 13:00
PROVIDERS: Family Provider Family Medicine; PCP Family Medicine; Referring Provider Internal Medicine Cardiovascular Disease; Visit Provider Internal Medicine Cardiovascular Disease
DX: I25.119 Atherosclerotic heart disease of native coronary artery with unspecified angina pectoris (principal); I34.0 Nonrheumatic mitral (valve) insufficiency; I36.1 Nonrheumatic tricuspid (valve) insufficiency; I44.60 Unspecified fascicular block; I50.22 Chronic systolic (congestive) heart failure; Z95.5 Presence of coronary angioplasty implant and graft; Z95.810 Presence of automatic (implantable) cardiac defibrillator
CPT/HCPCS: 93798

== ENCOUNTER 2018-02-27 13:00 | Outpatient (RCR) | payer OTHER, SELFPAY ==
[2017-11-17 09:09] VITALS: BMI 29.4
[2018-01-28 01:32] VITALS: BP 114/80; BP 148/62
--- NOTE | 2018-02-16 09:07 | PCM.CR.ITP ---
Exercise - 60-Day Assessment - Visit Date of Eval: 02/16/18 Session #:: 26 - Stages of Change Stages of Change:: Action - Exercise Prescription Mode:: Treadmill, Airdyne, NuStep Frequency (x/week): 3 Duration:: 30-45 METs: 4 Target Heart Rate:: 122-129 with max HR 120 - Hypertension Resting Blood Pressure:: 142/72 Peak Exercise Blood Pressure:: 172/82 Medication Changes:: No - Intervention Home Exercise/Activity Goal:: Moderate Exercise 30 min/day x 5 days/wk - Education Goals:: Warm-up, RPE OZIEL Scale, S/S, Safe Exercise, Self-Monitoring - Exercise Program Goals Exercise Program Goals: Aerobic Activity >30 min Nutrition - 60-Day Assessment - Program Goals Nutrition Program Goals: LDL <70. Total Cholesterol <200. HDL >45. Triglycerides <150. HgbA1C <7%. BMI <25 - Visit Date of Eval: 02/16/18 - Stages of Change Stages of Change:: Action - Lipids Has the patient seen the dietitian?: No - Diabetes Diabetes:: No - Weight Management Weight:: 167 lb - Intervention Referral to dietitian:: No Referral to Diabetic Clinic:: No Will attend diet classes:: Yes - Education Attended class for:: Healthy eating Tobacco - Initial Assessment - Program Goals Tobacco Program Goals: Complete smoking cessation. Attend education classes. Improve Knowledge Test score - Learning Barriers Learning Barriers: Ready to Learn Tobacco - 60-Day Assessment - Program Goals Tobacco Program Goals: Complete smoking cessation. Attend education classes. Improve Knowledge Test score - Stage of Change Stages of Change:: Action - Learning Barriers Learning Barriers: Participates in education - Family Support Do you have family support?: Yes - Intervention Education Schedule Given:: Yes - Education Attended class for:: Coronary artery disease, Risk factors, Sexuality, Medical compliance, Cardiac A&P Psychosocial - 60-Day Assess - Target Goals Target Goals: Assess presence or absence of depression. Using a valid screening tool, maximizes coping skills. Positive support system - Stages of Change Stages of Change:: Action - Psychosocial Test Tool Used:: HANDS Depression Questionnaire - Intervention PS - Interventions: Yes Attend Stress Management Classes, Yes Uses Stress Management Skills, No Referral to Mental Health, No Referral to [facility] Case Management, No Referral to Physician - Education Attended classes for:: Coping techniques, Signs & symptoms of depression, Stress management, Relaxation techniques - Patient/Program Goal Preventative Medication(s):: Aspirin, Clopidogrel, Statin/lipid - Assistive Devices Assistive Devices:: None Patient Health Questionnaire 60-Day Re-eval Assessment 1. Little interest or pleasure in doing things: Not at all 2. Feeling down, depressed, or hopeless: Not at all 3. Trouble falling or staying asleep, or sleeping too much: Not at all 4. Feeling tired or having little energy: Not at all 5. Poor appetite or overeating: Not at all 6. Feeling bad about yourself -- or that you are a failure or have let yourself or your family down: Not at all 7. Trouble concentrating on things, such as reading the newspaper or watching television: Not at all 8. Moving or speaking so slowly that other people could have noticed. Or the opposite - being so fidgety or restless that you have been moving around a lot more than usual: Not at all 9. Thoughts that you would be better off , or of hurting yourself in some way: Not at all Total Score: 0 Self-Efficacy 60-Day Re-eval Assessment We would like to know how confident you are in doing certain activities. Please select your confidence level for:: Select your confidence level for the following using the scale 1-10 where 1 is not at all confident and 10 is totally confident. Your score is the average of all 6 responses. Fatigue: How confident are you that you can keep the fatigue caused by your disease from interfering with the things you want to do? Select Number: 9 Physical Discomfort or Pain: How confident are you that you can keep the physical discomfort or pain of your disease from interfering with the things you want to do? Select Number: 10 Emotional Distress: How confident are you that you can keep the emotional distress caused by your disease from interfering with the things you want to do? Select Number: 10 Other Symptoms or Health Problems: How confident are you that you can keep other symptoms or health problems from interfering with the things you want to do? Select Number: 10 Different Tasks and Activities: How confident are you that you can do the different tasks and activities needed to manage your health condition so as to reduce your need to see a doctor? Select Number: 10 Medication: How confident are you that you can do things other than just taking medication to reduce how much your illness affects your everyday life? Select Number: 10 Total Score:: 9
[2018-02-16 09:10] VITALS: BP 142/72; BP 172/82
--- NOTE | 2018-02-24 11:23 | PCM.CR.ITP ---
Exercise - 60-Day Assessment - Visit Date of Eval: 02/24/18 Session #:: 28 - MISSED ABOUT TWO WEEKS DUE TO LOWER BACK STRAIN - Stages of Change Stages of Change:: Action - Exercise Prescription Mode:: Treadmill, Biodyne, Airdyne, NuStep, Arm Ergometer Frequency (x/week): 3 Duration:: 30-45 MIN METs: 4 Target Heart Rate:: 122-129 WITH MAX HR 111 - Hypertension Resting Blood Pressure:: 110/80 Peak Exercise Blood Pressure:: 128/62 Medication Changes:: No - Intervention Home Exercise/Activity Goal:: Moderate Exercise 30 min/day x 5 days/wk - Education Goals:: Warm-up, RPE OZIEL Scale, S/S, Safe Exercise, Self-Monitoring - Exercise Program Goals Exercise Program Goals: Aerobic Activity >30 min Nutrition - 60-Day Assessment - Program Goals Nutrition Program Goals: LDL <70. Total Cholesterol <200. HDL >45. Triglycerides <150. HgbA1C <7%. BMI <25 - Visit Date of Eval: 02/24/18 - Stages of Change Stages of Change:: Action - Lipids Has the patient seen the dietitian?: No - Diabetes Diabetes:: No - Weight Management Weight:: 166 lb 8 oz - STABLE - Intervention Referral to dietitian:: No Will attend diet classes:: Yes - Education Attended class for:: Healthy eating Tobacco - Initial Assessment - Program Goals Tobacco Program Goals: Complete smoking cessation. Attend education classes. Improve Knowledge Test score - Learning Barriers Learning Barriers: Ready to Learn Tobacco - 60-Day Assessment - Program Goals Tobacco Program Goals: Complete smoking cessation. Attend education classes. Improve Knowledge Test score - Stage of Change Stages of Change:: Action - Learning Barriers Learning Barriers: Participates in education - Family Support Do you have family support?: Yes - Tobacco Use Tobacco Use: Non-smoker Do you use smokeless tobacco?: No - Intervention Smoking Cessation Referral:: No Education Schedule Given:: Yes - Education Attended class for:: Coronary artery disease, Risk factors, Sexuality, Medical compliance, Cardiac A&P, Angina signs & symptoms Psychosocial - 60-Day Assess - Target Goals Target Goals: Assess presence or absence of depression. Using a valid screening tool, maximizes coping skills. Positive support system - Stages of Change Stages of Change:: Action - Psychosocial Test Tool Used:: HANDS Depression Questionnaire - Intervention PS - Interventions: Yes Attend Stress Management Classes, Yes Uses Stress Management Skills, No Referral to Mental Health, No Referral to [facility] Case Management, No Referral to Physician - Education Attended classes for:: Coping techniques, Signs & symptoms of depression, Stress management - Patient/Program Goal Preventative Medication(s):: Aspirin, Clopidogrel, Beta reynold, Statin/lipid - Assistive Devices Assistive Devices:: None Fall Risk Assessed:: Yes Patient Health Questionnaire 60-Day Re-eval Assessment 1. Little interest or pleasure in doing things: Not at all 2. Feeling down, depressed, or hopeless: Not at all 3. Trouble falling or staying asleep, or sleeping too much: Several days 4. Feeling tired or having little energy: Not at all 5. Poor appetite or overeating: Not at all 6. Feeling bad about yourself -- or that you are a failure or have let yourself or your family down: Not at all 7. Trouble concentrating on things, such as reading the newspaper or watching television: Not at all 8. Moving or speaking so slowly that other people could have noticed. Or the opposite - being so fidgety or restless that you have been moving around a lot more than usual: Several days 9. Thoughts that you would be better off , or of hurting yourself in some way: Not at all How difficult have these problems made it for you to do your work, take care of things at home, or get along with other people?: Not difficult at all Total Score: 2 Self-Efficacy 60-Day Re-eval Assessment We would like to know how confident you are in doing certain activities. Please select your confidence level for:: Select your confidence level for the following using the scale 1-10 where 1 is not at all confident and 10 is totally confident. Your score is the average of all 6 responses. Fatigue: How confident are you that you can keep the fatigue caused by your disease from interfering with the things you want to do? Select Number: 9 Physical Discomfort or Pain: How confident are you that you can keep the physical discomfort or pain of your disease from interfering with the things you want to do? Select Number: 9 Emotional Distress: How confident are you that you can keep the emotional distress caused by your disease from interfering with the things you want to do? Select Number: 9 Other Symptoms or Health Problems: How confident are you that you can keep other symptoms or health problems from interfering with the things you want to do? Select Number: 9 Different Tasks and Activities: How confident are you that you can do the different tasks and activities needed to manage your health condition so as to reduce your need to see a doctor? Select Number: 9 Medication: How confident are you that you can do things other than just taking medication to reduce how much your illness affects your everyday life? Select Number: 9 Total Score:: 9
[2018-02-24 11:26] VITALS: BP 110/80; BP 128/62
== END 2018-02-27 23:59 ==
LOC: CR 13:00
PROVIDERS: Family Provider Family Medicine; PCP Family Medicine; Referring Provider Internal Medicine Cardiovascular Disease; Visit Provider Internal Medicine Cardiovascular Disease
DX: I25.119 Atherosclerotic heart disease of native coronary artery with unspecified angina pectoris (principal); I34.0 Nonrheumatic mitral (valve) insufficiency; I36.1 Nonrheumatic tricuspid (valve) insufficiency; I44.60 Unspecified fascicular block; I50.22 Chronic systolic (congestive) heart failure; Z95.5 Presence of coronary angioplasty implant and graft; Z95.810 Presence of automatic (implantable) cardiac defibrillator
CPT/HCPCS: 93798

== ENCOUNTER 2018-03-10 13:00 | Outpatient (RCR) | payer OTHER, SELFPAY ==
[2018-02-24 14:27] VITALS: BMI 29.7
[2018-02-28 01:04] VITALS: BP 110/80; BP 128/62
== END 2018-03-30 23:59 ==
LOC: CR 13:00
PROVIDERS: Family Provider Family Medicine; PCP Family Medicine; Referring Provider Internal Medicine Cardiovascular Disease; Visit Provider Internal Medicine Cardiovascular Disease
DX: I25.119 Atherosclerotic heart disease of native coronary artery with unspecified angina pectoris (principal); I34.0 Nonrheumatic mitral (valve) insufficiency; I36.1 Nonrheumatic tricuspid (valve) insufficiency; I44.60 Unspecified fascicular block; I50.22 Chronic systolic (congestive) heart failure; Z95.5 Presence of coronary angioplasty implant and graft; Z95.810 Presence of automatic (implantable) cardiac defibrillator
CPT/HCPCS: 93798

== ENCOUNTER 2018-12-04 08:32 | Day surgery (SDC) | payer OTHER, SELFPAY ==
--- NOTE | 2018-11-22 02:19 | HP_ITS ---
Intake Vital Signs 11/22/18 Body Mass Index (BMI) 29.5 11/22/18 Height 5 ft 3 in 11/22/18 Weight: 164 lb 11/22/18 Body Mass Index (BMI) 29.0 11/22/18 Blood Pressure 134/79 H 11/22/18 Blood Pressure Location Rt brachial 11/22/18 Respiratory Rate 18 Intake Visit Reasons: Diarrhea/C-Scope Consult Chief Complaint: 6 month follow up [employer] Required: No Is patient in pain?: No Allergies diamox eye drops Adverse Reaction (Intermediate, Uncoded 11/22/18 14:05) Itching eyes Medications aspirin 81 mg tablet,delayed release 81 mg PO QDAY 03/16/17 [History Confirmed 11/22/18] dorzolamide 2 % eye drops 1 drp OPHTHALMIC BID ml 03/16/17 [History Confirmed 11/22/18] clopidogrel 75 mg tablet 75 mg PO DAILY #90 tab 11/16/17 [Rx Confirmed 11/22/18] furosemide 40 mg tablet 40 mg PO QDAY #90 tab 01/31/18 [Rx Confirmed 11/22/18] carvedilol 12.5 mg tablet 12.5 mg PO BID #180 tab 02/24/18 [Rx Confirmed 11/22/18] atorvastatin 40 mg tablet 40 mg PO QHS #90 tab 05/27/18 [Rx Confirmed 11/22/18] sertraline 100 mg tablet 100 mg PO QDAY #90 tab 06/07/18 [Rx Confirmed 11/22/18] losartan 100 mg tablet 100 mg PO DAILY #90 tab 08/29/18 [Rx Confirmed 11/22/18] trazodone 50 mg tablet See Rx Instructions .ROUTE .COMPLEX #90 tablet 11/10/18 [Rx Confirmed 11/22/18] dicyclomine 20 mg tablet 20 mg PO BID #60 tab 11/15/18 [Rx Confirmed 11/22/18] [facility] Medical History Atherosclerosis of coronary artery of [place] heart with angina pectoris (Chronic) Non-ischemic cardiomyopathy (Chronic) Left bundle branch hemiblock (Chronic) Chronic systolic congestive heart failure (Chronic) Paroxysmal ventricular tachycardia (Chronic) Lumbosacral pain, chronic (Chronic) Dyspnea (Inactive) Malaise and fatigue (Inactive) Nonrheumatic mitral (valve) insufficiency (Inactive) Nonrheumatic tricuspid (valve) insufficiency (Inactive) Surgical History H/O right coronary artery stent placement (Chronic 11/07/17) Biventricular automatic implantable cardioverter defibrillator in situ (Chronic 12/19/09) History of left heart catheterization (Resolved) Family History Mother , age 73 from stomach malignancy Hypertension Hyperlipidemia Stomach cancer Diabetes Arthritis Brother Diabetes Other Family history of hyperlipidemia Family history of hypertension Social History (Updated 11/22/18 @ 14:19 by Faye Jiménez MD) Smoking Status: Current every day smoker alcohol intake: current alcohol intake frequency: holidays/special occasions only Alcohol type: wine substance use type: does not use diet: low salt caffeine: Yes Type: carbonated beverages what type of physical activity do you participate in: none seatbelt use: always do you feel safe at home: Yes HPI HPI HPI: RULA HUTCHISON, is a 68 F who presents to the office today for HPI HPI Surgical H&P: Yes HPI: RULA HUTCHISON, is a 68 F who presents to the office today for diarrhea x1 week. Patient did see her PCP who gave her Bentyl which she states does help. Patient states that about 30 minutes after eating she will have to go to the bathroom and has been diarrhea patient states before this she would normally have 1-2 formed bowel movements daily. Patient denies any sick contacts, any recent antibiotics, any abdominal pain or nausea or vomiting. Patient has never had a colonoscopy. Patient denies any family history of colon cancer. Patient did have a cardiac stent placed 11/07/2017 and has been on aspirin and Plavix since then. ROS Gastro Gastrointestinal: No abdominal pain, No nausea or vomiting, Yes diarrhea, No constipation, No blood in stool, Yes acid reflux (Only about 2 times a month and she does have chewables for this), No hemorrhoids, No ulcers, No gallbladder problem, No black,tarry stools Exam Const General: cooperative, comfortable, no acute distress Resp Effort & Inspection: normal respiratory effort GI Inspection: non-distended Palpation: soft, no guarding, nontender Assessment & Plan Problems 1. Diarrhea R19.7 Plan Will discuss with Dr. Hanks if patient can come off her Plavix and stay on her aspirin as she is over a year from her stent. If he would prefer her to stay on the aspirin and Plavix would still be able to do smaller biopsy but I did warn the patient that there is anything larger that being needed to be removed that would have to wait. I have discussed the above with the patient. I have offered the patient colonoscopy for evaluation. Also plan for random biopsies due to the diarrhea I have explained the risks/benefits of the procedure and described the procedure. I have discussed the risks with the patient, including but not limited to: infection, bleeding, perforation of the GI tract requiring emergency surgery, inability to complete the procedure, injury to any internal organs, complications of anesthesia, etc. - the patient understands and agrees to proceed. I have answered all the patient's questions to the patient's satisfaction and the patient has no further questions. The patient has been given instructions for the colon cleansing preparation. One day of clears, MiraLAX Dulcolax split prep prep Faye Jiménez M.D. Pager: [phone] [facility] [address] [place] [address], [address] [place] [address] Office: [phone] Plan Detail Follow Up We will schedule colonoscopy Coding Level of Care Code Off vis,new,level 3 Diagnoses Diarrhea R19.7 11/22/18 1419 <Electronically signed by Faye Bettencourt am, MD> Date _ Faye Jiménez MD I have re-examined the patient. There are no clinical changes since date of exam.
[2018-11-22 14:05] VITALS: BMI 29.5
[2018-12-04] VITALS (7 sets, daily range): BP systolic 102–129; BP diastolic 48–77; PULSE 61–78; RESP 14–18; TEMP 36.1–36.2; O2SAT 98–100; BMI 29.5
[2018-12-04] MEDS: Lactated Ringers 1,000 ML 100 ML IV (09:28)
--- NOTE | 2018-12-04 09:30 | COLBX_PTH ---
PATIENT: RULA HUTCHISON LOC: EN U#:[id number] AGE/SX: 68/F ROOM: RE12/04/[address]: Dr. Faye Jiménez MD : 1950 BED: DIS: 12/04/2018 SPEC #: [id number] RECD: 12/04/18 12:16 STATUS: FLAVIO EMORY #: [id number] TRUDY: 12/04/18 09:[address]: Faye Jiménez DEPT: SURGICAL PATHOLOGY RECD BY: Jared Romano ENTERED: 12/04/18 13:01 SP TYPE: COLON BX OTHR DR: Dr. Terrence Chen, DO Tissues: Descending colon Procedures: Surgery Specimen Level IV HEADER OPERATION: Colonoscopy (MAC) PRE-OP DIAGNOSIS: Diarrhea TISSUE SUBMITTED: Descending colon, random biopsy MICROSCOPIC DIAGNOSIS Descending colon, random biopsy: A fragment of colonic mucosa, no pathologic diagnosis. NICKIE:bam 12/05/18 MICROSCOPIC DESCRIPTION Slides are reviewed. GROSS DESCRIPTION Received in fixative is one container labeled with the patient's name and designated descending colon biopsy. The specimen consists of one irregular fragment of light meyer soft tissue that measures 0.6 x 0.3 x 0.1 cm. The specimen is totally submitted in one cassette. / SJ:bam 12/04/18 TC:4 CPT: 03320
--- NOTE | 2018-12-04 10:15 | OP.ENDO_ITS ---
12/04/2018 Terrence Chen Re : Colonoscopy procedure for Juliana Adams Dear Dr. Chen This procedure was performed on Tuesday, December 04, 2018. My impressions and recommendations are as follows: Impressions : - Hemorrhoids found on perianal exam. - Diverticulosis in the sigmoid colon, in the descending colon and in the transverse colon. - Internal hemorrhoids. - Biopsies were taken with a cold forceps for histology in the descending colon. Recommendations : - Repeat colonoscopy in 10 years for screening purposes. - Discharge patient to home. - High fiber diet. - Continue present medications. - Await pathology results. My findings are described in the full procedure note, which is enclosed. If I can be of further assistance, please feel free to contact me at Doctor phone number(s): , Work: . Sincerely, MD Faye Atkins MD 12/04/2018 10:15:02 AM This report has been signed electronically.
== END 2018-12-04 10:51 | disposition home or self-care (01) ==
LOC: EN 08:32 → AC 08:33
PROVIDERS: Family Provider Family Medicine; PCP Family Medicine; Referring Provider Family Medicine; Visit Provider Surgery
PROC: 0DJD8ZZ Inspection of Lower Intestinal Tract, Via Natural or Artificial Opening Endoscopic (ICD-10-PCS; CPT 45378; principal; 2018-12-04 09:25)
DX: R19.7 Diarrhea, unspecified (principal); K64.9 Unspecified hemorrhoids; K57.30 Diverticulosis of large intestine without perforation or abscess without bleeding; K64.0 First degree hemorrhoids; I25.10 Atherosclerotic heart disease of native coronary artery without angina pectoris; I42.8 Other cardiomyopathies; I11.0 Hypertensive heart disease with heart failure; I50.22 Chronic systolic (congestive) heart failure; F17.200 Nicotine dependence, unspecified, uncomplicated; E78.00 Pure hypercholesterolemia, unspecified; F32.9 Major depressive disorder, single episode, unspecified; Z95.5 Presence of coronary angioplasty implant and graft; Z79.02 Long term (current) use of antithrombotics/antiplatelets; Z95.810 Presence of automatic (implantable) cardiac defibrillator; Z79.82 Long term (current) use of aspirin; Z79.899 Other long term (current) drug therapy
CPT/HCPCS: 45380; 88305; J7120

== ENCOUNTER → 2019-01-04 | Outpatient (CLI) | payer OTHER, SELFPAY ==
[2018-12-04 09:06] VITALS: BMI 29.5
--- NOTE | 2019-01-04 10:11 | BI_ITS ---
MAMMOGRAPHY - BILATERAL SCREENING REASON FOR EXAM: Female, 68 years old. Routine annual screening examination. PERTINENT HISTORY: Aunt with breast cancer. TECHNIQUE: Digital bilateral breast allie (3D mammographic acquisition) in the CC and MLO projections. 2-D mediolateral oblique (MLO) and craniocaudad (CC) views of both breasts were obtained. CAD: Full Field Digital Mammography with Computer Added Detection was performed. COMPARISON: Comparison is made with prior study dated December 27, 2017 and December 07, 2016. FINDINGS: Breast Composition: There are scattered areas of fibroglandular density. There are no dominant masses or suspicious calcifications. A pacemaker battery pack is seen in the left axillary region. Stable benign-appearing bilateral axillary lymph nodes. No other significant abnormalities are identified. There has been no significant change since the prior study. BI/SCREEN MAMM (CAD) W/ALLIE BILAT IMPRESSION: Stable bilateral screening mammogram. Yearly follow-up mammogram recommended. (A) ASSESSMENT CATEGORY: BIRADS Category 2: Benign. A letter regarding these results will be sent to the patient by the facility within 30 days. Approximately 10% of breast cancers are not detected by mammography. A normal mammogram should not delay biopsy of a clinically suspicious abnormality. [id number] Electronically Signed: Familia Lugo, at 12:21 EST , Service support ,
== END | disposition home or self-care (01) ==
LOC: OPBI 10:09
PROVIDERS: Family Provider Family Medicine; PCP Family Medicine; Referring Provider Obstetrics & Gynecology; Visit Provider Obstetrics & Gynecology
DX: Z12.31 Encounter for screening mammogram for malignant neoplasm of breast (principal)
CPT/HCPCS: 77063; 77067

== ENCOUNTER → 2019-05-16 13:29 | Outpatient (CLI) | payer OTHER, SELFPAY ==
[2019-05-16 13:14] VITALS: BMI 29.5
[2019-05-16 15:59] LABS: ALB/GLOB Ratio 0.8 RATIO (0.9-2.4); AST(SGOT) 19 U/L (15-37); Alanine Aminotransfer ALT/SGPT 24 U/L (13-56); Albumin, Serum 3.7 g/dL (3.2-5.0); Alkaline Phosphatase 150 U/L (45-117); Anion Gap 5 (5-15); BUN 10 mg/dL (7-18); BUN/Creat Ratio 11.7 RATIO (10-20); Calcium,Total 8.8 mg/dL (8.5-10.1); Chloride 112 mmol/L (98-107); Cholesterol 173 mg/dL (200); Creatinine, Serum 0.85 mg/dL (0.55-1.02); EST Glomerular Filtration Rate 70 mL/min (>60); Est Glom Filt Rate - Afr Amer 85 mL/min (>60); Globulin 4.4 g/dL (2.2-4.2); Glucose 89 mg/dL (74-106); High Density Lipoprotein 63 mg/dL; Potassium 3.8 mmol/L (3.5-5.1); Protein, Total 8.1 g/dL (6.4-8.2); Sodium Level 145 mmol/L (136-145); Triglycerides 100 mg/dL; Very Low Density Lipoprotein 20 mg/dL (5-40)
== END ==
PROVIDERS: PCP Family Medicine; Referring Provider Family Medicine; Visit Provider Family Medicine
DX: I25.119 Atherosclerotic heart disease of native coronary artery with unspecified angina pectoris (principal)
CPT/HCPCS: 36415; 80053; 80061

== ENCOUNTER 2019-06-13 13:00 | Outpatient (RCR) | payer OTHER, SELFPAY ==
[2019-05-16 13:14] VITALS: BMI 29.5
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
--- NOTE | 2019-07-31 08:45 | HP.PT.NRP ---
RULA HUTCHISON was seen in my office for initial evaluation on 05/18/19. The following Plan of Care was established for this patient: Initial Frequency: 3x /Week Initial Duration: 4 Weeks Patient/Client Instruction: Educate patient on: Benefits of Fitness Program Therapeutic Exercise to Include: Strength training, Endurance training, Balance training, Coordination, Body mechanics, Postural training, Flexibilty training, Neuromotor development, Dynamic Lumbar Stabilization For the Purpose of:: To improve muscle performance and motor function TENS: Yes Cryotherapy (ice pack, ice massage): Yes Thermo therapy (hot pack): Yes Ultrasound (thermal/non thermal): Yes This patient was last seen in our office . Pertinent comments regarding their Physical therapy will appear below: Patient has not attended physical therapy in over 4 weeks- appropriate for d/c. Return to MD for further evaluation as needed. At this point I will be discontinuing this patient from physical therapy. I would be happy to see this patient again in the future if found appropriate by the physician. Thank you! JAILENE QuiñonezT
== END 2019-06-13 19:00 | disposition home or self-care (01) ==
LOC: PT 13:00
PROVIDERS: PCP Family Medicine; Referring Provider Family Medicine; Visit Provider Family Medicine
DX: M54.5 Low back pain (principal); G89.29 Other chronic pain
CPT/HCPCS: 97110; 97161

== ENCOUNTER → 2019-10-30 13:37 | Outpatient (CLI) | payer OTHER, SELFPAY ==
[2019-10-16 13:14] VITALS: BMI 32.5
--- NOTE | 2019-10-30 13:39 | ECHOD_ITS ---
Reason For Study: CAD/ASHD Procedure This was a 2D Doppler, Color Flow transthoracic echocardiogram. Exam performed in department. Left Ventricle Normal LV size. The estimated ejection fraction is 35 %. There is mild global hypokinesis of the left ventricle. Right Ventricle Normal RV size. ICD or pacer leads identified within the right ventricle. Normal systolic function. Mitral Valve Mild focal mitral valve calcification. Mild (1+) eccentric mitral valve insufficiency. Tricuspid Valve Normal tricuspid valve. Mild (1+) eccentric tricuspid valve insufficiency. Pulmonary artery systolic pressure is 33 mmHg. Great Vessels Normal aortic root. The pulmonary artery is normal size. Normal inferior vena cava. Pericardium/Pleural Trivial pericardial effusion. MMode/2D Measurements & Calculations LVIDd: 4.1 cm IVSd: 1.4 cm Ao root diam: 2.9 cm LVIDs: 3.0 cm LVPWd: 1.4 cm LA dimension: 3.3 cm FS: 27.5 % LAV(MOD-bp): 38.5 ml LA A4 area: 15.6 cm2 RA A4 area: 11.1 cm2 LAV(MOD-bp) Indexed: 21.5 ml/m2 LAV(MOD-sp2): 38.9 ml LAV(MOD-sp4): 36.7 ml Time Measurements MV dec time: 0.18 sec Doppler Measurements & Calculations MV E max gabriel: 84.7 cm/sec Lat Peak E' Gabriel: 4.8 cm/sec Med Peak E' Gabriel: 3.7 cm/sec MV A max gabriel: 131.0 cm/sec E/E' lat: 17.5 E/E' med: 23.0 MV E/A: 0.65 MV V2 max: 153.1 cm/sec MV P1/2t max gabriel: 91.5 cm/sec Ao V2 max: 128.6 cm/sec MV max P.4 mmHg MV P1/2t: 98.8 msec Ao max P.6 mmHg MV V2 mean: 77.8 cm/sec MV dec slope: 271.3 cm/sec2 MV mean P.0 mmHg MV V2 VTI: 31.6 cm MVA(P1/2t): 2.2 cm2 LV V1 max: 107.7 cm/sec MR max gabriel: 596.6 cm/sec PA V2 max: 80.9 cm/sec LV V1 max P.6 mmHg MR max P.4 mmHg MR mean gabriel: 429.9 cm/sec MR mean P.5 mmHg MR VTI: 230.0 cm TR max gabriel: 264.5 cm/sec TR max P.0 mmHg Interpretation Summary Normal LV size. The estimated ejection fraction is 35 %. There is mild global hypokinesis of the left ventricle. Trivial pericardial effusion. ICD or pacer leads identified within the right ventricle. Mild (1+) eccentric mitral valve insufficiency. Mild (1+) eccentric tricuspid valve insufficiency. Pulmonary artery systolic pressure is 33 mmHg. Compared to previous study, the left ventricular systolic function has improved.. Ordering Physician: Matheus Hanks Referring Physician: CRISTIN HELLER Performed By: Andrew Downey RCS
== END ==
PROVIDERS: PCP Family Medicine; Referring Provider Internal Medicine Cardiovascular Disease; Visit Provider Internal Medicine Cardiovascular Disease
DX: I25.10 Atherosclerotic heart disease of native coronary artery without angina pectoris (principal); I42.8 Other cardiomyopathies
CPT/HCPCS: 93306

== ENCOUNTER → 2020-01-03 13:53 | Outpatient (CLI) | payer OTHER, SELFPAY ==
[2019-10-16 13:14] VITALS: BMI 32.5
[2020-01-03 13:16] VITALS: BMI 28.5
--- NOTE | 2020-01-03 16:55 | BI_ITS ---
MAMMOGRAPHY - BILATERAL SCREENING REASON FOR EXAM: Female, 69 years old. Routine annual screening examination. PERTINENT HISTORY: Aunt with breast cancer. Remote right excisional breast biopsy. TECHNIQUE: Digital bilateral breast allie (3D mammographic acquisition) in the CC and MLO projections. 2-D mediolateral oblique (MLO) and craniocaudad (CC) views of both breasts were obtained. CAD: Full Field Digital Mammography with Computer Added Detection was performed. COMPARISON: Comparison is made with prior study dated 01/04/2019 and 12/27/2017. FINDINGS: Breast Composition: There are scattered areas of fibroglandular density. There are no dominant masses or suspicious calcifications. Stable benign-appearing bilateral axillary lymph nodes. No other significant abnormalities are identified. There has been no significant change since the prior study. BI/SCREEN MAMM (CAD) W/ALLIE BILAT IMPRESSION: Stable bilateral screening mammogram. Yearly follow-up mammogram recommended. (A) ASSESSMENT CATEGORY: BIRADS Category 2: Benign. A letter regarding these results will be sent to the patient by the facility within 30 days. Approximately 10% of breast cancers are not detected by mammography. A normal mammogram should not delay biopsy of a clinically suspicious abnormality. [id number] Electronically Signed: Familia Lugo, at 8:06 EST , Service support ,
[2020-01-07 20:07] LABS: Endomysial Antibody IgA Negative (Negative)
[2020-01-07 20:55] LABS: Immunoglobulin A 538 mg/dL (87-352); t-Transglutaminase IgA <2 U/mL (0-3)
== END ==
PROVIDERS: PCP Family Medicine; Referring Provider Student in an Organized Health Care Education/Training Program; Visit Provider Student in an Organized Health Care Education/Training Program
DX: Z12.31 Encounter for screening mammogram for malignant neoplasm of breast (principal); R19.7 Diarrhea, unspecified
CPT/HCPCS: 36415; 77063; 77067; 82784; 83516; 86255

== ENCOUNTER → 2020-01-08 15:13 | Outpatient (CLI) | payer OTHER, SELFPAY ==
[2020-01-03 13:16] VITALS: BMI 28.5
--- NOTE | 2020-01-08 15:21 | BD_ITS ---
STUDY: DUAL ENERGY X-RAY ABSORPTIOMETRY / DXA REASON FOR EXAM: Female, 69 years old. ACETYLENE BURNER -- SMOKER -- TAKES LASIX -- DOES MODERATE AMOUNT OF EXERCISE -- FAMILY HX OF OSTEO- GRANDMOTHER -- DICK OF 0.5 INCH TECHNIQUE: Bone Mineral Density (BMD) measurements of lumbar spine and bilateral hips were obtained. COMPARISON: Comparison is made with prior study dated 08/19/2010. FINDINGS: Lumbar Spine (L1-L4): g/cm2 (1.240) / T-score (0.5) / Z-score (1.5) Findings are suggestive of normal bone density with a low fracture risk. Left Femur Total: g/cm2 (0.774) / T-score (-1.9) / Z-score (-1.4) Left Femoral Neck: g/cm2 (0.718) / T-score (-2.3) / Z-score (-1.5) Right Femur Total: g/cm2 (0.771) / T-score (-1.9) / Z-score (-1.4) Right Femoral Neck: g/cm2 (0.739) / T-score (-2.1) / Z-score (-1.4) The T-Scores on the most recent prior examination were: Lumbar Spine (L1-L4): There has been worsening of bone density since the previous examination. Left Femur Total: which represents a worsening of 5.5%. Right Femur Total: which represents a worsening of 6.7%. BD/Dexa Bone Density Study IMPRESSION: The patient is considered osteopenic as outlined below according to World Nnamdi Organization (WHO) criteria with a high fracture risk. There has been worsening of bone density since the previous examination. Reference Information: The T-score is the number of standard deviations above or below the standard which is normal for young adults at their peak bone mineral density. The World Health Organization (WHO) interprets the T-scores as follows: Above -1 Normal bone density Between -1 and -2.5 Osteopenia Equal to / or below -2.5 Osteoporosis As a practical clinical guideline, osteopenia may be graded as follows: Mild -1 through -1.5 Moderate -1.6 through -2.0 Severe -2.1 through -2.4 The Z-score is the number of standard deviations above or below age-matched controls. A Z-score of less than -1.5 would be considered abnormal. References: 1. NIH Osteoporosis and Related Bone Diseases www osteo.org 2. International Society for Clinical Densitometry www iscd.org 3. National Osteoporosis Foundation www nof.org Electronically Signed: Familia Lugo, at 9:10 EST , Service support ,
== END ==
PROVIDERS: PCP Family Medicine; Referring Provider Family Medicine; Visit Provider Family Medicine
DX: Z00.00 Encounter for general adult medical examination without abnormal findings (principal)
CPT/HCPCS: 77080

== ENCOUNTER → 2020-02-07 14:28 | Outpatient (CLI) | payer OTHER, SELFPAY | PROVIDERS: PCP Family Medicine; Referring Provider Internal Medicine; Visit Provider Internal Medicine | DX: R09.81 Nasal congestion (principal) | CPT/HCPCS: 87635; U0003 ==

== ENCOUNTER → 2020-12-16 13:59 | Outpatient (CLI) | payer OTHER, SELFPAY ==
[2020-12-16 15:40] LABS: Anion Gap 7 (5-15); BUN 16 mg/dL (7-18); BUN/Creat Ratio 16.9 RATIO (10-20); Calcium,Total 9.3 mg/dL (8.5-10.1); Chloride 110 mmol/L (98-107); Creatinine, Serum 0.94 mg/dL (0.55-1.02); EST Glomerular Filtration Rate 62 mL/min (>60); Est Glom Filt Rate - Afr Amer 75 mL/min (>60); Glucose 82 mg/dL (74-106); Magnesium 2.2 mg/dL (1.6-2.6); Potassium 3.5 mmol/L (3.5-5.1); Sodium Level 144 mmol/L (136-145)
== END ==
PROVIDERS: PCP Family Medicine; Referring Provider Internal Medicine Cardiovascular Disease; Visit Provider Internal Medicine Cardiovascular Disease
DX: I42.8 Other cardiomyopathies (principal); Z95.810 Presence of automatic (implantable) cardiac defibrillator
CPT/HCPCS: 36415; 80048; 83735

== ENCOUNTER → 2021-01-05 09:51 | Outpatient (CLI) | payer OTHER, SELFPAY ==
--- NOTE | 2021-01-05 09:54 | BI_ITS ---
MAMMOGRAPHY - BILATERAL SCREENING REASON FOR EXAM: Female, 70 years old. Routine annual screening examination. PERTINENT HISTORY: Aunt with breast cancer. TECHNIQUE: Digital bilateral breast allie (3D mammographic acquisition) in the CC and MLO projections. 2-D mediolateral oblique (MLO) and craniocaudad (CC) views of both breasts were obtained. CAD: Full Field Digital Mammography with Computer Added Detection was performed. COMPARISON: Comparison is made with prior study dated 01/03/2020 and 01/04/2019. FINDINGS: Breast Composition: There are scattered areas of fibroglandular density. There are no dominant masses or suspicious calcifications. Stable small benign-appearing right axillary lymph nodes. No other significant abnormalities are identified. There has been no significant change since the prior study. BI/SCRN MAMM (CAD)W/ALLIE BILAT IMPRESSION: Stable bilateral screening mammogram. Yearly follow-up mammogram recommended. (A) ASSESSMENT CATEGORY: BIRADS Category 2: Benign. A letter regarding these results will be sent to the patient by the facility within 30 days. Approximately 10% of breast cancers are not detected by mammography. A normal mammogram should not delay biopsy of a clinically suspicious abnormality. [id number] Electronically Signed: Familia Lugo MD at 10:41 EST , Service support ,
== END ==
PROVIDERS: PCP Family Medicine; Referring Provider Student in an Organized Health Care Education/Training Program; Visit Provider Student in an Organized Health Care Education/Training Program
DX: Z12.31 Encounter for screening mammogram for malignant neoplasm of breast (principal)
CPT/HCPCS: 77063; 77067

== ENCOUNTER 2021-03-16 11:56 | Outpatient (CLI) | payer OTHER, SELFPAY | END 2021-03-16 23:59 | disposition short-term general hospital (02) | PROVIDERS: PCP Family Medicine; Referring Provider Nurse Practitioner Family; Visit Provider Nurse Practitioner Family | DX: Z00.00 Encounter for general adult medical examination without abnormal findings (principal) ==

== ENCOUNTER 2021-03-19 09:57 | Day surgery (SDC) | payer OTHER, SELFPAY ==
[2021-03-12 09:27] LABS: Bacteria 0 SEEN /hpf (None Seen); Mucous, Urine 0 SEEN /hpf (<or=2+); Red Blood Cells-Urine 0 SEEN /hpf (0-5)
[2021-03-12 09:58] LABS: Hemoglobin 12.2 g/dL (12.0-15.0); Mean Corp Hgb Conc 30.5 g/dL (32-36); Mean Corpuscular Hgb 27.8 pg (27.0-32.0); Mean Corpuscular Volume 91.1 fL (81-99); Mean Platelet Vol. 9.4 fl (6.2-12.0); Platelet Count 286 K/mm3 (150-450); RBC Distribution Width CV 14.7 % (11.6-14.6); RBC Distribution Width SD 49.4 fl (35.1-43.9); Red Blood Count 4.39 M/mm3 (4.2-5.4); White Blood Count 4.8 K/mm3 (4.4-11.0)
[2021-03-12 10:10] LABS: International Normalized Ratio 1.1; Prothrombin Time (Protime)PT. 13.5 SECONDS (11.7-14.9)
[2021-03-12 10:12] LABS: Glucose, Dipstick Normal (Normal); Ketone-Dipstick Negative (Negative); Leukocyte Esterase-Dipstick 500 /ul (Negative); Nitrite-Dipstick Negative (Negative); Occult Blood-Urine Negative /ul (Negative); Protein-Dipstick 15 mg/dl (Negative); Urine Urobilinogen Normal (Normal)
[2021-03-12 10:19] LABS: Urine Bilirubin Dipstick 1 mg/dL (Negative)
[2021-03-12 10:20] LABS: Color, Urine YELLOW (Yellow); Urine Clarity Sl Cldy (Clear)
[2021-03-12 10:21] LABS: Squamous Epithelial Cells - UA 0-5 SEEN /hpf (5-10)
[2021-03-12 10:22] LABS: White Blood Cells 0-5 SEEN /hpf (0-5)
[2021-03-12 10:52] LABS: Anion Gap 7 (5-15); BUN 20 mg/dL (7-18); BUN/Creat Ratio 19.6 RATIO (10-20); Calcium,Total 9.3 mg/dL (8.5-10.1); Chloride 109 mmol/L (98-107); Creatinine, Serum 1.02 mg/dL (0.55-1.02); EST Glomerular Filtration Rate 57 mL/min (>60); Est Glom Filt Rate - Afr Amer 69 mL/min (>60); Glucose 118 mg/dL (74-106); Potassium 3.8 mmol/L (3.5-5.1); Sodium Level 143 mmol/L (136-145)
[2021-03-12 11:42] LABS: AST(SGOT) 19 U/L (15-37); Alanine Aminotransfer ALT/SGPT 28 U/L (13-56); Albumin, Serum 3.6 g/dL (3.2-5.0); Alkaline Phosphatase 135 U/L (45-117); Bilirubin, Direct 0.12 mg/dL (0.00-0.30); Cholesterol 172 mg/dL (200); Globulin 4.7 g/dL (2.2-4.2); High Density Lipoprotein 59 mg/dL; Protein, Total 8.3 g/dL (6.4-8.2); Triglycerides 69 mg/dL; Very Low Density Lipoprotein 14 mg/dL (5-40)
[2021-03-18 08:09] VITALS: BMI 28.8
--- NOTE | 2021-03-19 11:59 | PCM.OPRPT ---
Report of Operation Date of Procedure: 03/19/21 Description of Surgical Findings:: Diagnosis: Nonisch Cardiomyopathy with NYHA Class iii. ICD for primary prevention. Device generator replacement for normal battery depletion Preoperative diagnosis is device at end of life for normal battery depletion. Postoperative diagnosis same as above. After informed consent and IV antibiotics the patient was brought to the [facility] catheterization laboratory and the skin over the device was prepped and draped in the usual sterile manner. Intermittent boluses of Versed, and fentanyl were used for sedation and analgesia as well as 1% subcutaneous lidocaine. An incision was made over the pre-existing device. Using blunt and Bovie dissection the pocket was opened and the device was removed. Careful attention was paid not to injure the pre-existing leads. The leads were removed from the device header and they were interrogated. There is normal lead function. Hemostasis was obtained. The pocket was flushed with antibiotic solution. The sponge and needle count were correct. The new device was brought to the field. The leads were placed in the appropriate position in the header and secured by the set screw. The leads and the device were then placed in the pocket. The pocket was closed with a deep layer of running 2-0 Vicryl, a superficial layer of running 4-0 Vicryl, skin with Steri-Strips which were covered with a rolled 4 x 4 and Tegaderm. Patient left the room with the device programmed to proper parameters and there were no complications. The device is a biv icd chamber [employer] generator. All lead parameters were tested and found to be functionally normal. Lead and device serial and model numbers are available in the chart documents provided by the device company human resources representative procedure summary.
== END 2021-03-19 23:59 | disposition home or self-care (01) ==
LOC: CLSP 09:57
PROVIDERS: Nurse Practitioner Family; Physician Assistant Medical; PCP Family Medicine; Referring Provider Internal Medicine Cardiovascular Disease; Visit Provider Internal Medicine Cardiovascular Disease
DX: Z45.02 Encounter for adjustment and management of automatic implantable cardiac defibrillator (principal); I42.8 Other cardiomyopathies; I11.0 Hypertensive heart disease with heart failure; I50.22 Chronic systolic (congestive) heart failure; I25.119 Atherosclerotic heart disease of native coronary artery with unspecified angina pectoris; Z95.810 Presence of automatic (implantable) cardiac defibrillator; Z87.19 Personal history of other diseases of the digestive system; K58.0 Irritable bowel syndrome with diarrhea; G89.29 Other chronic pain; I34.8 Other nonrheumatic mitral valve disorders; Z79.02 Long term (current) use of antithrombotics/antiplatelets; Z79.82 Long term (current) use of aspirin; Z79.899 Other long term (current) drug therapy; F17.200 Nicotine dependence, unspecified, uncomplicated
CPT/HCPCS: 33264; 36415; 80048; 80061; 80076; 81001; 85027; 85610; 87635; 93641; 99152; 99153; C9803; J7040; J7050; J2405; U0003; U0005

== ENCOUNTER 2021-05-20 15:18 | Outpatient (CLI) | payer OTHER, SELFPAY ==
[2021-05-20 16:49] LABS: Anion Gap 2 (5-15); BUN 19 mg/dL (7-18); BUN/Creat Ratio 20.2 RATIO (10-20); Calcium,Total 9.5 mg/dL (8.5-10.1); Chloride 111 mmol/L (98-107); Creatinine, Serum 0.94 mg/dL (0.55-1.02); EST Glomerular Filtration Rate 62 mL/min (>60); Est Glom Filt Rate - Afr Amer 75 mL/min (>60); Glucose 82 mg/dL (74-106); Potassium 4.1 mmol/L (3.5-5.1); Sodium Level 142 mmol/L (136-145)
== END 2021-05-20 23:59 | disposition home or self-care (01) ==
LOC: BIMLAB 15:19
PROVIDERS: PCP Family Medicine; Referring Provider Physician Assistant; Visit Provider Physician Assistant
DX: I42.8 Other cardiomyopathies (principal)
CPT/HCPCS: 36415; 80048

== ENCOUNTER → 2022-03-23 | Outpatient (CLI) | payer MEDICARE, OTHER, SELFPAY ==
[2022-03-23 17:11] LABS: ALB/GLOB Ratio 0.9 RATIO (0.9-2.4); AST(SGOT) 16 U/L (15-37); Alanine Aminotransfer ALT/SGPT 22 U/L (13-56); Albumin, Serum 3.7 g/dL (3.2-5.0); Alkaline Phosphatase 157 U/L (45-117); Anion Gap 7 (5-15); BUN 19 mg/dL (7-18); BUN/Creat Ratio 18.8 RATIO (10-20); Calcium,Total 9.6 mg/dL (8.5-10.1); Chloride 110 mmol/L (98-107); Cholesterol 193 mg/dL (200); Creatinine, Serum 1.01 mg/dL (0.55-1.02); EST Glomerular Filtration Rate 57 mL/min (>60); Est Glom Filt Rate - Afr Amer 69 mL/min (>60); Glucose 137 mg/dL (74-106); High Density Lipoprotein 64 mg/dL; Potassium 4.1 mmol/L (3.5-5.1); Protein, Total 7.7 g/dL (6.4-8.2); Sodium Level 143 mmol/L (136-145); Triglycerides 96 mg/dL; Very Low Density Lipoprotein 19 mg/dL (5-40)
== END | disposition home or self-care (01) ==
LOC: BIMLAB 14:49
PROVIDERS: PCP Family Medicine; Referring Provider Family Medicine; Visit Provider Family Medicine
DX: I50.22 Chronic systolic (congestive) heart failure (principal); I25.119 Atherosclerotic heart disease of native coronary artery with unspecified angina pectoris
CPT/HCPCS: 36415; 80053; 80061

== ENCOUNTER → 2022-09-22 | Outpatient (CLI) | payer MEDICARE, OTHER, SELFPAY ==
[2022-09-22 14:16] LABS: Mucous, Urine 0 SEEN /hpf (<or=2+); Red Blood Cells-Urine 0 SEEN /hpf (0-5)
--- NOTE | 2022-09-22 15:00 | RAD_ITS ---
INDICATION: low back pain EXAMINATION/TECHNIQUE: X-RAY - XR Spine Lumbar 2 or 3 Views COMPARISON: None. FINDINGS: VERTEBRAE: Preserved vertebral body height. No fracture. Mild degenerative grade 1 retrolisthesis L1 on L2.. Preservation of the normal lumbar lordosis. Facet arthropathy L4-L5 to greater degree L5-S1.. Dextrocurvature of the lumbar spine with mild endplate degenerative change. DISCS: Mild disc height loss at L3-4.. INCLUDED ABDOMEN: Included bowel gas pattern is non-obstructive. Aortic atherosclerosis, with lateral view ectasia at L3-4 level to 2.5 cm RAD/Lumbar Spine 2 or 3 Views IMPRESSION: Lumbar spondylosis with dextrocurvature. Facet arthropathy most prominent at L5-S1. Aortic atherosclerosis with lower lumbar ectasia to 2.5 cm Electronically Signed: Poncho Orozco MD at 3:43 EDT ,
[2022-09-22 15:40] LABS: Color, Urine Yellow (Yellow); Glucose, Dipstick Normal (Normal); Ketone-Dipstick 5 mg/dl (Negative); Leukocyte Esterase-Dipstick 500 /ul (Negative); Nitrite-Dipstick Negative (Negative); Occult Blood-Urine 10 /ul (Negative); Protein-Dipstick 100 mg/dl (Negative); Urine Bilirubin Dipstick 3 mg/dL (Negative); Urine Clarity Cloudy (Clear); Urine Urobilinogen 1 mg/dl (Normal)
[2022-09-22 15:52] LABS: Squamous Epithelial Cells - UA 0-5 SEEN /hpf (5-10); White Blood Cells 0-5 SEEN /hpf (0-5)
[2022-09-22 15:53] LABS: Bacteria 1+ /hpf (None Seen); Fine Granular Cast- Urine 5-10 SEEN /lpf (0-5); Hyaline Cast 0-5 SEEN /lpf (0-5)
[2022-09-22 16:09] LABS: ALB/GLOB Ratio 0.9 RATIO (0.9-2.4); AST(SGOT) 22 U/L (15-37); Alanine Aminotransfer ALT/SGPT 24 U/L (13-56); Albumin, Serum 3.6 g/dL (3.2-5.0); Alkaline Phosphatase 146 U/L (45-117); Anion Gap 4 (5-15); BUN 12 mg/dL (7-18); BUN/Creat Ratio 10.9 RATIO (10-20); Calcium,Total 9.6 mg/dL (8.5-10.1); Chloride 110 mmol/L (98-107); EST Glomerular Filtration Rate 52 mL/min (>60); Est Glom Filt Rate - Afr Amer 63 mL/min (>60); Globulin 4.2 g/dL (2.2-4.2); Glucose 125 mg/dL (74-106); Potassium 4.3 mmol/L (3.5-5.1); Protein, Total 7.8 g/dL (6.4-8.2); Sodium Level 142 mmol/L (136-145)
== END | disposition home or self-care (01) ==
PROVIDERS: PCP Family Medicine; Referring Provider Family Medicine; Visit Provider Family Medicine
DX: M48.00 Spinal stenosis, site unspecified (principal); I50.22 Chronic systolic (congestive) heart failure; G89.29 Other chronic pain
CPT/HCPCS: 36415; 72100; 80053; 81001

== ENCOUNTER → 2022-11-16 | Outpatient (CLI) | payer MEDICARE, OTHER, SELFPAY ==
--- NOTE | 2022-11-16 06:14 | ECHOD_ITS ---
Reason For Study: OTHER CMP Procedure This was a 2D Doppler, Color Flow transthoracic echocardiogram. Exam performed in department. Left Ventricle Normal LV size. Stage 1 diastolic dysfunction. The left ventricular ejection fraction is 40 %. There is mild global hypokinesis of the left ventricle. Right Ventricle Normal RV size. ICD or pacer leads identified within the right ventricle. Normal systolic function. Mitral Valve Mild-Moderate (1-2+) eccentric mitral valve insufficiency. Aortic Valve Trisinus/trileaflet aortic valve. Pulmonic Valve Normal pulmonic valve. Great Vessels Normal aortic root. The pulmonary artery is normal size. Pericardium/Pleural No pericardial effusion. MMode/2D Measurements & Calculations LVIDd: 4.6 cm IVSd: 1.1 cm Ao root diam: 2.8 cm LVIDs: 3.7 cm LVPWd: 1.4 cm RVDd: 3.0 cm FS: 19.0 % LAV(MOD-bp): 48.5 ml SV(MOD-sp4): 29.0 ml LVAd ap4: 25.1 cm2 LAV(MOD-bp) Indexed: 27.1 ml/m2 LVLd ap4: 8.0 cm LAV(MOD-sp2): 57.4 ml EDV(MOD-sp4): 69.9 ml LAV(MOD-sp4): 41.1 ml EDV(sp4-el): 66.5 ml LVAs ap4: 18.2 cm2 LVLs ap4: 6.9 cm ESV(MOD-sp4): 40.9 ml ESV(sp4-el): 40.6 ml EF(MOD-sp4): 41.5 % EF(sp4-el): 38.9 % SV(sp4-el): 25.9 ml LA dimension(2D): 3.4 cm LA A4 area: 17.2 cm2 TAPSE: 1.6 cm RA A4 area: 11.9 cm2 Time Measurements MV dec time: 0.07 sec Doppler Measurements & Calculations MV E max gabriel: 99.0 cm/sec Lat Peak E' Gabriel: 3.9 cm/sec Med Peak E' Gabriel: 4.5 cm/sec MV A max gabriel: 169.9 cm/sec E/E' lat: 25.2 E/E' med: 21.8 MV E/A: 0.58 MV V2 max: 166.4 cm/sec Ao V2 max: 145.7 cm/sec MV max P.1 mmHg MV dec slope: 1401 cm/sec2 Ao max P.5 mmHg MV V2 mean: 94.8 cm/sec Ao V2 mean: 95.7 cm/sec MV mean P.4 mmHg Ao mean P.3 mmHg MV V2 VTI: 34.3 cm Ao V2 VTI: 31.2 cm AV (velocity ratio): 0.74 LV V1 max: 107.1 cm/sec MR max gabriel: 690.8 cm/sec PA V2 max: 100.1 cm/sec LV V1 max P.6 mmHg MR max P.9 mmHg PA V2 mean: 61.7 cm/sec LV V1 mean P.4 mmHg MR mean gabriel: 485.0 cm/sec LV V1 mean: 71.7 cm/sec MR mean P.0 mmHg LV V1 VTI: 23.0 cm MR VTI: 249.2 cm ECHO/Echo Complete Interpretation Summary Normal LV size. There is mild global hypokinesis of the left ventricle. Stage 1 diastolic dysfunction. The left ventricular ejection fraction is 40 %. Ordering Physician: Kameron Cleaning Referring Physician: Kameron Cleaning Performed By: Gisella Jernigan RCS
--- NOTE | 2022-11-16 10:44 | STRESSREP ---
Stress Test Report Pharmacologic myocardial perfusion stress test. 72-year-old lady with a history of coronary artery disease and cardiomyopathy Resting EKG demonstrates sinus rhythm with a rate of 64 bpm. Resting blood pressure is 138/88 mmHg. 0.4 mg of regadenoson was infused per usual protocol followed by rapid intravenous saline flush injection. Continuous EKG monitoring was performed. The maximum heart rate was 105 bpm which was 71% of max impacted heart rate the maximum workload was 1 metabolic equivalent. At rest there were no ST or T wave changes noted to suggest ischemia and at peak infusion nonspecific ST changes were noted which did not meet the criteria for ischemia. No clinical angina is noted. The final blood pressure was 148/82 mmHg. Myocardial perfusion protocol. 15.0 mCi of technetium 99m sestamibi was injected at rest. 0.4 mg of regadenoson was infused per usual protocol. At peak infusion 37.6 mCi of technetium 99m sestamibi was injected stress images were obtained stress and rest images were reconstructed and compared in the short axis vertical long and horizontal long axis. Gated images were also obtained. Perfusion SPECT analysis: Review of the stress images demonstrate normal uptake of tracer noted in all areas of the myocardium, there is a small portion of the lateral wall with a medium size defect present. The resting images similar demonstrated normal uptake of tracer noted in all areas of the myocardium with a persistent defect noted in the mid lateral wall.. No areas of reversibility are noted to suggest ischemia. A previous lateral wall infarct cannot be completely excluded. Gated SPECT analysis: The gated ejection fraction is 52%. Conclusion: Normal pharmacologic myocardial perfusion stress test. Previous lateral infarct cannot be completely excluded Low normal ejection fraction.
== END | disposition home or self-care (01) ==
PROVIDERS: PCP Family Medicine; Referring Provider Nurse Practitioner Family; Visit Provider Nurse Practitioner Family
DX: I25.119 Atherosclerotic heart disease of native coronary artery with unspecified angina pectoris (principal); I42.8 Other cardiomyopathies; Z95.810 Presence of automatic (implantable) cardiac defibrillator
CPT/HCPCS: 78452; 93017; 93306; A9500; A4216; J2785

== ENCOUNTER 2023-12-02 10:42 | Outpatient (CLI) | payer MEDICARE, OTHER, SELFPAY ==
--- NOTE | 2023-12-02 11:00 | RAD_ITS ---
INDICATION: ICD EXAMINATION/TECHNIQUE: X-RAY - XR Chest 2 Views COMPARISON: 10/21/2017 FINDINGS: LINES/DEVICES: Stable transvenous pacemaker. LUNGS: No consolidation, edema or effusion. No pneumothorax. MEDIASTINUM AND CARDIOVASCULAR STRUCTURES: Cardiac silhouette not enlarged. Central airways and mediastinal contour are unremarkable. BONES AND SOFT TISSUES: No acute changes. Stable scoliosis. RAD/Chest PA and Lateral IMPRESSION: No radiographic evidence of acute cardiopulmonary disease. Electronically Signed: Favian Gaines MD at 0:12 EDT ,
[2023-12-02 12:19] LABS: Absolute Lymphocyte Count 2.07 X10^3/uL (0.83-4.51); Absolute Neutrophil Count 4.9 X10^3/uL (2.0-7.7); Basophil# 0.01 X10^3/uL; Basophil% 0.1 % (0-1); Eosinophil# 0.09 X10^3/uL; Eosinophils% 1.2 % (0-5); Hemoglobin 13.2 g/dL (12.0-15.0); Lymphocyte # 2.07 X10^3/ul (0.83-4.51); Lymphocyte % 27.9 % (19-41); Mean Corp Hgb Conc 31.4 g/dL (32-36); Mean Corpuscular Hgb 28.4 pg (27.0-32.0); Mean Corpuscular Volume 90.3 fL (81-99); Mean Platelet Vol. 9.6 fl (6.2-12.0); Monocyte# 0.34 X10^3/uL; Monocyte% 4.6 % (0-10); NRBC Flagged by Analyzer 0 % (0-5); Neutrophil # 4.87 X10^3/uL (2.7-7.7); Neutrophil % 65.8 % (47-70); Platelet Count 266 K/mm3 (150-450); RBC Distribution Width CV 15.4 % (11.6-14.6); Red Blood Count 4.65 M/mm3 (4.2-5.4); White Blood Count 7.4 K/mm3 (4.4-11.0)
[2023-12-02 12:44] LABS: Erythrocyte Sedimentation Rate 26 mm/hr (0-30)
== END 2023-12-02 23:59 | disposition home or self-care (01) ==
PROVIDERS: PCP Family Medicine; Referring Provider Internal Medicine Cardiovascular Disease; Visit Provider Internal Medicine Cardiovascular Disease
DX: R07.9 Chest pain, unspecified (principal); Z95.810 Presence of automatic (implantable) cardiac defibrillator
CPT/HCPCS: 36415; 71046; 85025; 85652

== ENCOUNTER → 2023-12-28 | Outpatient (CLI) | payer MEDICARE, OTHER, SELFPAY ==
[2023-12-28 15:41] LABS: ALB/GLOB Ratio 0.8 RATIO (0.9-2.4); AST(SGOT) 20 U/L (15-37); Alanine Aminotransfer ALT/SGPT 30 U/L (13-56); Albumin, Serum 3.3 g/dL (3.2-5.0); Alkaline Phosphatase 132 U/L (45-117); Anion Gap 4 (5-15); BUN 17 mg/dL (7-18); BUN/Creat Ratio 17.3 RATIO (10-20); Calcium,Total 9.4 mg/dL (8.5-10.1); Chloride 113 mmol/L (98-107); Creatinine, Serum 0.98 mg/dL (0.55-1.02); EST Glomerular Filtration Rate 59 mL/min (>60); Est Glom Filt Rate - Afr Amer 71 mL/min (>60); Globulin 4.2 g/dL (2.2-4.2); Glucose 104 mg/dL (74-106); Potassium 3.9 mmol/L (3.5-5.1); Protein, Total 7.5 g/dL (6.4-8.2); Sodium Level 141 mmol/L (136-145)
== END | disposition home or self-care (01) ==
LOC: BIMLAB 13:17
PROVIDERS: PCP Family Medicine; Referring Provider Family Medicine; Visit Provider Family Medicine
DX: I50.22 Chronic systolic (congestive) heart failure (principal)
CPT/HCPCS: 36415; 80053

== ENCOUNTER 2024-08-21 08:28 | Emergency (ER) | payer MEDICARE, OTHER, SELFPAY ==
[2024-08-21 08:29] VITALS: BP 137/102; PULSE 92; RESP 16; TEMP 36.8; O2SAT 100
[2024-08-21] MEDS: predniSONE 20 MG Tablet 60 MG PO (09:04)
[2024-08-21] MEDS: HYDROcodone Bitartrate/Apap 5/325 Tablet PO (09:04)
[2024-08-21 09:06] VITALS: BMI 26.7
--- NOTE | 2024-08-21 09:21 | ED.VIS.LOWEX ---
HPI History of Present Illness Chief Complaint: Lower Extremity Injury Informant: patient and family Narrative Narrative: Nontraumatic left hip pain for 3 days. No history of hip issues no surgical issues. No fever chills or sweats. She has not tramadol for back pain no help. Denies diabetes history. History of cardiomyopathy with an AICD. History of coronary disease with stenting. Currently on aspirin. No other anticoagulants. Prior similar symptoms: No PFSH PFSH Medical History Eczema Colitis Strain, lumbosacral, chronic or old Irritable bowel syndrome with diarrhea Lumbosacral pain, chronic Atherosclerosis of coronary artery of [place] heart with angina pectoris Non-ischemic cardiomyopathy Dyspnea Malaise and fatigue Nonrheumatic mitral (valve) insufficiency Nonrheumatic tricuspid (valve) insufficiency Left bundle branch hemiblock Chronic systolic congestive heart failure Paroxysmal ventricular tachycardia Home Medications ?Medication ?Instructions ?Recorded ?Last Taken ?Type aspirin 81 mg tablet,delayed 81 mg PO QDAY heart health #90 tabs 03/23/22 Unknown Rx release (Adult Aspirin Regimen) Handicap placard #1 ea 06/28/23 Unknown Rx loperamide 2 mg capsule 2 mg PO .COMPLEX PRN loose stool 12/28/23 Unknown Rx #20 caps losartan 100 mg tablet See Rx Instructions .Route 12/28/23 Unknown Rx .COMPLEX #90 tabs sertraline 100 mg tablet 100 mg PO DAILY #90 tabs 02/08/24 Unknown Rx furosemide 40 mg tablet (Lasix) 40 mg PO QDAY diuresis #90 tabs 04/03/24 Unknown Rx carvedilol 25 mg tablet 25 mg PO DAILY #180 tabs 04/24/24 Unknown Rx zolpidem 10 mg tablet (Ambien) 10 mg PO QHS PRN sleep #30 tabs 06/11/24 Unknown Rx atorvastatin 40 mg tablet 40 mg PO QHS #90 tabs 06/27/24 Unknown Rx triamcinolone acetonide 0.025 % 1 applic topical QDAY #80 grams 06/27/24 Unknown Rx topical ointment tramadol 50 mg tablet 50 mg PO TID PRN pain #30 tabs 08/17/24 Unknown Rx hydrocodone-acetaminophen 5-325mg 1 tab PO Q6H PRN PRN Pain 3 days 08/21/24 Unknown Rx 5mg-325mg #12 TABLETS prednisone 20 mg tablet 40 mg (2 x 20 mg) PO DAILY #12 08/21/24 Unknown Rx TABLETS Allergy/AdvReac Type Severity Reaction Status Date / Time acetazolamide (From Diamox AdvReac Itching Verified 08/21/24 08:30 Sequels) Family History Mother , age 73 from stomach malignancy Hypertension Hyperlipidemia Stomach cancer Diabetes Arthritis Brother Diabetes Other Family history of hyperlipidemia Family history of hypertension Surgical History Hx of non-cataract eye surgery (~06/2021) History of coronary artery stent placement (11/07/17) History of left heart catheterization Biventricular automatic implantable cardioverter defibrillator in situ (12/19/09) Social History Smoking Status: Current some day smoker tobacco type: cigarettes alcohol intake: current alcohol intake frequency: holidays/special occasions only Alcohol type: wine substance use type: does not use diet: low salt caffeine: Yes Type: carbonated beverages what type of physical activity do you participate in: none seatbelt use: always do you feel safe at home: Yes ROS ROS ED Constitutional Constitutional ED: Denies fever(s) Cardiovascular Cardiovascular: Denies chest pain Respiratory/Chest Respiratory/Chest: Denies cough Gastrointestinal Gastrointestinal: Denies diarrhea or vomiting Musculoskeletal Musculoskeletal: Reports other Details: Left hip pain Integumentary Denies rash or wounds Neurologic Neurologic: Denies weakness EXAM Physical Exam Const Vital Signs: 08/21/24 08:29 08/21/24 10:09 Temperature 98.3 F 98.0 F Temperature Source Oral Pulse Rate 92 76 Respiratory Rate 16 16 Blood Pressure 137/102 H 122/75 H Blood Pressure Mean 113 90 Pulse Ox 100 100 Positive well nourished and well developed General Appearance ED: well developed HEENT normocephalic and atraumatic Eyes General Eye ED: Yes normal appearance of both eyes Neck full ROM Resp normal respiratory effort and normal air movement Cardio regular rate and regular rhythm GI soft to palpation Extremity Extremity Narrative: left hip: No shortening or rotation negative logroll. Tender palpation left gluteal greater trochanteric. Soft compartments. Neuro oriented x3 Skin no rashes or lesions noted and no wounds MDM MDM MDM Narrative Medical decision making narrative: Interventions / MDM: Differential diagnosis: Left hip pain, bursitis, osteoarthritis Diagnosis considered but do not suspect: N/A My EKG interpretation: N/A Imaging independently reviewed and interpreted by myself: Left hip x-ray with pelvis 3 views: No fracture mild osteoarthritic changes noted. External documents reviewed: N/A Test considered but not ordered:N/A ED course: Nontraumatic hip pain. Will order for x-ray. [place] ordered along with prednisone for possible bursitis. X-ray mild arthrosclerotic changes. Patient has been able to ambulate with her pain without assistance. She becomes on steroids at this time she will use [place] she will hold tramadol while on [place] she is given orthopedic follow-up. All questions were answered. Re-evaluation: stable Disposition discussed with patient/family/significant other: Patient and family Case discussed with consulting clinician: N/A This note was generated with [employer] dictation software. It may contain incorrect words, spelling, and punctuation that were not noted in checking the note before signing. Radiography Diagnostic Testing: Clinical Impression(s) from Imaging Studies Hip/Pelvis X-Ray 08/21/24 19:10 IMPRESSION: No evidence of fracture or dislocation. Reading Location: [id number] Discharge Plan Triage Chief Complaint: Lower Extremity Injury ED Provider: Dago Licea Dx/Rx/DC Orders Clinical Impression: Hip pain, left, Bursitis of left hip, Osteoarthritis Instructions: OA Hip, ED Bursitis Prescriptions: New hydrocodone-acetaminophen 5-325 mg tablet 1 tab PO Q6H PRN PRN (Reason: Pain) 3 Days Qty: 12 0RF prednisone 20 mg tablet 40 mg PO DAILY Qty: 12 0RF No Action aspirin [Adult Aspirin Regimen] 81 mg tablet,delayed release (DR/EC) 81 mg PO QDAY Qty: 90 3RF (DME) Handicap placard See Rx Instructions .Route .MEDSUPPLY Qty: 1 0RF Rx Instructions: 5 years duration, Diagnosis DJD of both knees loperamide 2 mg capsule 2 mg PO .COMPLEX MDD 16mg PRN (Reason: loose stool) Qty: 20 1RF Rx Instructions: Take 4 mg by mouth once and then 2 mg by mouth after each loose stool losartan 100 mg tablet See Rx Instructions .ROUTE .COMPLEX Qty: 90 3RF Dose Instruction: TAKE 1 TABLET BY MOUTH EVERY DAY Rx Instructions: TAKE 1 TABLET BY MOUTH EVERY DAY atorvastatin 40 mg tablet 40 mg PO QHS Qty: 90 3RF triamcinolone acetonide 0.025 % ointment 1 applic topical QDAY Qty: 80 1RF sertraline 100 mg tablet 100 mg PO DAILY Qty: 90 1RF Rx Instructions: TAKE 1 TABLET BY MOUTH EVERY DAY furosemide [Lasix] 40 mg tablet 40 mg PO QDAY Qty: 90 1RF carvedilol 25 mg tablet 25 mg PO DAILY Qty: 180 3RF zolpidem [Ambien] 10 mg tablet 10 mg PO QHS PRN (Reason: sleep) Qty: 30 1RF tramadol 50 mg tablet 50 mg PO TID PRN (Reason: pain) Qty: 30 0RF Stand Alone Forms: ED Work / School Excuse Primary Care Provider: Terrence Chen Referrals: Terrence Chen DO [Primary Care Provider] - Garrett Tiwari MD [Med Staff - Active Staff] - 1-2 Weeks Activity Restrictions/Additional Instructions: Mild osteoarthritis noted in right hip. Take medication as prescribed. Follow-up with Dr. Tiwari. Print Language: Mozambican Disposition Disposition: Home, Self Care Discharge Date/Time: 08/21/24 10:23
[2024-08-21 10:09] VITALS: BP 122/75; PULSE 76; RESP 16; TEMP 36.7; O2SAT 100
--- NOTE | 2024-08-21 19:10 | RAD_ITS ---
PROCEDURE: HIP, UNI W/ PELVIS 2-3 VIEWS 08/21/2024 REASON FOR EXAM: PAIN TECHNIQUE: HIP, UNI W/ PELVIS 2-3 VIEWS COMPARISON: None FINDINGS: Bones: No fracture is seen. Joints: Mild degree of joint space narrowing. Soft tissues: Calcified phleboliths within the pelvis. Other: RAD/HIP, UNI W/ Pelvis 2-3 Views IMPRESSION: No evidence of fracture or dislocation. Reading Location: [facility]
== END 2024-08-21 10:23 | disposition home or self-care (01) ==
PROVIDERS: Emergency Provider Emergency Medicine; PCP Family Medicine; Visit Provider Emergency Medicine
DX: M70.72 Other bursitis of hip, left hip (principal); I50.22 Chronic systolic (congestive) heart failure; I42.8 Other cardiomyopathies; M16.12 Unilateral primary osteoarthritis, left hip; I34.0 Nonrheumatic mitral (valve) insufficiency; I25.10 Atherosclerotic heart disease of native coronary artery without angina pectoris; F17.210 Nicotine dependence, cigarettes, uncomplicated; Z95.5 Presence of coronary angioplasty implant and graft; Z79.82 Long term (current) use of aspirin; Z95.810 Presence of automatic (implantable) cardiac defibrillator; Z79.899 Other long term (current) drug therapy
CPT/HCPCS: 73502; 99283

== ENCOUNTER 2024-10-26 14:30 | Outpatient (RCR) | payer MEDICARE, OTHER, SELFPAY ==
--- NOTE | 2024-09-26 15:50 | HP.PTEVAL_ITS ---
Patient's Visit Information Visit Information Visit Information: RULA HUTCHISON is a 73 year old F referred to Physical Therapy by CAMPOS Hernandez with a diagnosis of Left Hip Pain and LBP. Date of Evaluation: 09/26/24 Physical Therapist: Katelyn Prado DPT Visit Plan Frequency: 2x /Week Duration: 4 Weeks Plan: Focus on postural correction and core strength/stabilization HEP Given IE: TA contraction, bridge, hip add in supine with ball, hip abd with pink BTB, seated scapular retraction, postural correction Subjective Subjective: Patient reports that she has arthritis in her left hip- it started about a month ago- she got up one morning and she had pain everywhere and she went to the ER. She had x-rays and was told she had OA. She had an injection and its been better since the injection. Worst: -09/06 she is unsure of what aggravates it. Eases: the injection and the pain medication. She has pain in her back when she stands for long periods of time. She has pain in her hip and radiates down the outside of her leg. Describes the pain as achy. She has no N/T in her toes. Sleep: takes medication before she goes to bed- but if she doesn't it will wake her up. She is active sometimes but not all the time. She is able to do all of her own house work and ADLs. She tripped over her cat last week and ended up falling but not normally. PMHx/Meds: no change in s/s Objective Objective: Posture: forward head, rounded shoulders- can correct but does not maintain Gait: slow vamshi, decreased stride length and decreased heel/toe pattern HR/TR: able with UE A SLS: weight shift but unable to SLS ROM: Lumbar: WNL pain with SB and rotation to the left, Hip: WNL pain with end range hip flexion and IR/ER Strength: Core: fair minus, Left: Hip: 4-/5 with discomfort throughout, Knee: 4/5, Ankle: 5/5 Right: Hip: 4/5 Knee: 4/5, Ankle: 5/5 Palpation: tender along Lumbar spine parapsinals L1-L5, Gluts, greater troch, ITBand, joint line of the knee Sensation: WNL to gross touch bilateral Special Test: directional testing does not change s/s, Dural testing: negative bilateral Slump: negative, SLR: negative Special Tests L Hip Scour: Negative L Hip JAXON - Intraarticular Pathology: Positive L Hip FADDIR - Labrum: Positive L Hip Trendelenberg - Glut Medius: Positive Balance/Special Test Scores Oswestry Low Back Score: 16 Goals Goal 1:: Patient will be I with HEP and progression Goal Time Frame: 4-6 Weeks Goal 2:: Patient will maintain proper posture t/o tx session to demo increased core s/s Goal Time Frame: 4-6 Weeks Goal 3:: Patient will report no dural s/s for 1 week Goal Time Frame: 4-6 Weeks Goal 4:: Patient will report 80% improvement Goal Time Frame: 4-6 Weeks Rehabilitation Potential Physical Therapy Diagnosis: Patient presents with decreased LE and core strength/stabilization, flex, proprioception and muscular endurance leading to abnormal gait and increased pain with ADL's. Rehabilitation Potential: Good Anticipated Interventions Patient/Client Instruction: Educate patient on: Benefits of Fitness Program Therapeutic Exercise to Include: Strength training, Endurance training, Balance training, Coordination, Agility training, Body mechanics, Postural training, Flexibilty training, Gait and locomotor training, Neuromotor development, Dynamic Lumbar Stabilization and Scapular Strength/Stabilization For the Purpose of:: To improve muscle performance and motor function TENS: Yes Cryotherapy (ice pack, ice massage): Yes Thermo therapy (hot pack): Yes Ultrasound (thermal/non thermal): Yes Text: Thank you for the opportunity to evaluate your patient. For Medicare and Medicare HMO plans, please review the plan of care and approve it. It will need to be FAXED BACK to us at [phone] for Medicare purposes. For Medicare only, by signing this I certify the plan of care. Please let me know if there are questions or concerns regarding this plan of care. Physician Signature: Date:
--- NOTE | 2024-10-26 17:03 | HP.PTDCSUM ---
Discharge Summary D/C summary: It has been my pleasure to treat RULA HUTCHISON referred by CAMPOS Hernandez, with the diagnosis of Left Hip Pain and LBP for a total of 7 visit(s). Discharge Date: 10/26/24 Please see the following information for a summary of their discharge status. Subjective Subjective: Pt. reports no L hip pain or LBP. Pt. reports being 80% better overall. Pain lumbar: Pain Intensity (Out of 10): 0 Overall Improvement % Improvement: 80 Objective Objective/Function: ROM: LUMBAR SPINE: flexion min loss NE, ext min loss NE, SB nil loss NE, rotation min/nil loss NE. Pt. has some mild tightness in HS. Normal B hip ROM without increase in symptoms STAIRS: normal with 1 HR MMT: Pt. has good strength throughout BLEs. Core strength fair-. GAIT: Pt. has fairly normal gait pattern without issues. Goals Goal 1:: Patient will be I with HEP and progression Goal Progress: Goal Met Goal 2:: Patient will maintain proper posture t/o tx session to demo increased core s/s Goal Progress: Goal Met Goal 3:: Patient will report no dural s/s for 1 week Goal Progress: Goal Met Goal 4:: Patient will report 80% improvement Goal Progress: Goal Met Plan Plan: Pt. has met all goals and is doing well. She will be DC from PT at this point in time D/C Information d/c sentence: If there are questions or concerns regarding this patient's physical therapy, please feel free to call me at [phone]. Thank you for the referral of this patient. Sincerely, Harjit Mcleod, DPT Balance/Gait/Functional tests Balance/Special Test Scores Oswestry Low Back Score: 10 Improvement % Improvement: 80
== END 2024-10-26 19:00 | disposition home or self-care (01) ==
LOC: PT 14:30
PROVIDERS: PCP Family Medicine; Visit Provider Nurse Practitioner Family
DX: M70.61 Trochanteric bursitis, right hip (principal); M54.50 Low back pain, unspecified; G89.29 Other chronic pain
CPT/HCPCS: 97110; 97162; 97530